=== PATIENT | male | born 1985 | race African-American/Black ===

== ENCOUNTER 2017-08-15 23:11 | Emergency (ER) | payer MEDICAID ==
[~2017-08-15] VITALS: Ht 165.1 cm; Wt 149.7 kg
[~2017-08-15 23:11] MED LIST: ALLEGRA30 MG PO; ALLEGRA60 MG PO; BACTRIM DS 8001 TA1 PO; CEPHALEXIN500 MG PO; CIPRO 500MG TA500 MG PO; CLARITIN 10MG T10 MG PO; DELTASONE5 MG PO; EC NAPROSYN500 MG PO; FLEXERIL10 MG PO; IMITREX100 MG PO; KEFLEX 500MG.500 MG PO; KEPPRA 500 MG500 MG PO; LORATADINE 10MG10 M1 PO; LORTAB 5/500 501 TAB PO; NOMEDS *; PAXIL20 MG PO; QVAR0.08 MG/AC IH; SEPTRA DS 800 M1 TAB PO; STERAPRED DS10 MG PO; TESSALON PERLE100 M1 PO; VENTOLIN H0.09 MG/AC IH; VICODIN 5/500 T1 TAB PO; VOLTAREN75 MG PO
[2017-08-15] MEDS ORDERED: MINOCYCLINE 10100 MG PO (23:33)
--- NOTE | 2017-08-15 23:34 | Emergency Room Report ---
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 N Clinical Suspician of Infection? N Mental Status: 1 - Regular (Normal Baseline) Sepsis Risk:Low Sepsis Risk Have you (or family members/close friends) recently traveled outside the [place]? N If Yes, where/when: Have you had exposure to infectious disease within the past month? N TB? Other? Specify: Source patient, RN notes reviewed, family, old records Exam Limitations no limitations Comment has ongoing scalp lesions with over the last few days which cause parra - no fever or neuro sx Cardiac Chest Pain Chest pain indicative of cardiac No Timing/Duration this evening Severity moderate ALLERGIES Coded Allergies: MDX - Ibuprofen (IBUPROFEN) (Intermediate, SWELLS THROAT 04/28/15) MDX - Tramadol (From ULTRAM) (Intermediate, SEIZURES 04/28/15) MDX - Hydrochlorothiazide (From HCTZ-METOPROLOL) (11/13/13) MDX - Metoprolol (From HCTZ-METOPROLOL) (11/13/13) MDX - PCN (penicillin) (PCN (PENICILLIN)) (C-[id number]-GJUG/THROAT 10/18/12) Home Medications Reported Medications Levetiracetam (Keppra 500 Mg Tablet) 500 MG PO BID Loratadine (Loratadine 10MG Tablet) 10 MG PO DAILY PAROXETINE (Paroxetine HCl) 20 MG PO DAILY Sumatriptan Succinate (Imitrex) 100 MG PO PRN PRN MIGRAINES ALBUTEROL (Ventolin Hfa) 1 PUFF IH PRN PRN SOA Beclomethasone Dipropionate (Qvar 80MCG Inhaler) 1 PUFF IH DAILY History Medical History General CAD? No Angina: No [place]: No Hypertension? Yes Hyperlipidemia? No CHF? No DVT? No PE? No COPD? No Asthma? Yes Anemia? No GERD? No Gastric ulcers? No GI Bleed? No Hernia? No Thyroid Problems? No Hypothyroidism? No CVA? No Seizures? Yes Diabetes? No Renal Insuffiency? No End Stage Renal Disease? No UTI? No Stones? No BPH? No GB Disease: No Nephritic Syndrome? No Asplenia? No Hepatitis? No Sickle Cell Disease? No Arthritis? No Migraines? No Cataracts? No Glaucoma? No MRSA? No HIV? No TB? No Anxiety? No Depression? No Cancer? No More? No Immunization Hx DT/Tetanus 02/26/12 Surgical Hx Previous Surgery?Y GANGLION CYST REMOVAL CARPAL TUNNEL BOTH WRIST Social History Smoking Hx Smoker: Current Every Day Smoker Tobacco: Yes Type Cigarettes Packs/day < 1 Pack Alcohol Alcohol: No Drugs none Review of Systems All Other Systems Reviewed and Negative Constitutional denies fever Eyes denies drainage ENT denies: ear pain, epistaxis, throat pain. Respiratory denies cough, denies shortness of breath, denies wheezing Cardiovascular denies chest pain, denies syncope Gastrointestinal denies abdominal pain, denies diarrhea, denies vomiting Genitourinary denies: dysuria, frequency, hesitancy, hematuria. Musculoskeletal denies back pain, denies joint pain, denies joint swelling, denies neck pain Skin see HPI, other Psychiatric/Neurological see HPI, headache, denies seizure Physical Exam Vital Signs Vital Signs Date Time Temp Pulse Resp B/P Pulse O2 O2 Flow FiO2 Ox Delivery Rate 08/15 2317 98.4 79 18 147/92 95 - WBC >12,000 or <4,000 or 10% bands? 2 or more SIRS Criteria Met? B/P:147/92 MAP:110 Creatinine >2.0? UA output<0.5ml/kg/hr for 2 hrs? Platelet count >100,000? Lactate >2.0mmol/1? INR >1.2 or PTT > than 60 sec? Evidence of Organ Dysfunction? Provider documented clinical suspician of infection? N Sepsis Criteria Count: 0 Sepsis Risk: Low Sepsis Risk General Appearance no apparent distress Eye Exam - bilateral eye PERRL, bilateral eye EOMI Ear, Nose, Throat normal ENT inspection Neck supple Respiratory Status No: respiratory distress. 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 No Departure Departure Time of Disposition 2324 Disposition DC Home or Self Care(routine) Clinical Impression Primary Impression: Cellulitis of scalp Condition STABLE Patient Instructions DI for Cellulitis -- Adult Additional Instructions ues meds and see pcp this week for follow up Discharge Counseling Counseled pt/family regarding diagnosis, medications/RX, follow up needs Prescriptions Current Visit Scripts Minocycline Hcl (Minocycline 100MG. Capsule) 100 MG PO BID #20 CAP ED Critical Care Critical Care No at 2336
--- NOTE | 2017-08-15 23:34 | Emergency Room Report ---
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 N Clinical Suspician of Infection? N Mental Status: 1 - Regular (Normal Baseline) Sepsis Risk:Low Sepsis Risk Have you (or family members/close friends) recently traveled outside the [place]? N If Yes, where/when: Have you had exposure to infectious disease within the past month? N TB? Other? Specify: Source patient, RN notes reviewed, family, old records Exam Limitations no limitations Comment has ongoing scalp lesions with over the last few days which cause parra - no fever or neuro sx Cardiac Chest Pain Chest pain indicative of cardiac No Timing/Duration this evening Severity moderate ALLERGIES Coded Allergies: MDX - Ibuprofen (IBUPROFEN) (Intermediate, SWELLS THROAT 04/28/15) MDX - Tramadol (From ULTRAM) (Intermediate, SEIZURES 04/28/15) MDX - Hydrochlorothiazide (From HCTZ-METOPROLOL) (11/13/13) MDX - Metoprolol (From HCTZ-METOPROLOL) (11/13/13) MDX - PCN (penicillin) (PCN (PENICILLIN)) (Q-[id number]/THROAT 10/18/12) Home Medications Reported Medications Levetiracetam (Keppra 500 Mg Tablet) 500 MG PO BID Loratadine (Loratadine 10MG Tablet) 10 MG PO DAILY PAROXETINE (Paroxetine HCl) 20 MG PO DAILY Sumatriptan Succinate (Imitrex) 100 MG PO PRN PRN MIGRAINES ALBUTEROL (Ventolin Hfa) 1 PUFF IH PRN PRN SOA Beclomethasone Dipropionate (Qvar 80MCG Inhaler) 1 PUFF IH DAILY History Medical History General CAD? No Angina: No [place]: No Hypertension? Yes Hyperlipidemia? No CHF? No DVT? No PE? No COPD? No Asthma? Yes Anemia? No GERD? No Gastric ulcers? No GI Bleed? No Hernia? No Thyroid Problems? No Hypothyroidism? No CVA? No Seizures? Yes Diabetes? No Renal Insuffiency? No End Stage Renal Disease? No UTI? No Stones? No BPH? No GB Disease: No Nephritic Syndrome? No Asplenia? No Hepatitis? No Sickle Cell Disease? No Arthritis? No Migraines? No Cataracts? No Glaucoma? No MRSA? No HIV? No TB? No Anxiety? No Depression? No Cancer? No More? No Immunization Hx DT/Tetanus 02/26/12 Surgical Hx Previous Surgery?Y GANGLION CYST REMOVAL CARPAL TUNNEL BOTH WRIST Social History Smoking Hx Smoker: Current Every Day Smoker Tobacco: Yes Type Cigarettes Packs/day < 1 Pack Alcohol Alcohol: No Drugs none Review of Systems All Other Systems Reviewed and Negative Constitutional denies fever Eyes denies drainage ENT denies: ear pain, epistaxis, throat pain. Respiratory denies cough, denies shortness of breath, denies wheezing Cardiovascular denies chest pain, denies syncope Gastrointestinal denies abdominal pain, denies diarrhea, denies vomiting Genitourinary denies: dysuria, frequency, hesitancy, hematuria. Musculoskeletal denies back pain, denies joint pain, denies joint swelling, denies neck pain Skin see HPI, other Psychiatric/Neurological see HPI, headache, denies seizure Physical Exam Vital Signs Vital Signs Date Time Temp Pulse Resp B/P Pulse O2 O2 Flow FiO2 Ox Delivery Rate 08/15 2317 98.4 79 18 147/92 95 - WBC >12,000 or <4,000 or 10% bands? 2 or more SIRS Criteria Met? B/P:147/92 MAP:110 Creatinine >2.0? UA output<0.5ml/kg/hr for 2 hrs? Platelet count >100,000? Lactate >2.0mmol/1? INR >1.2 or PTT > than 60 sec? Evidence of Organ Dysfunction? Provider documented clinical suspician of infection? N Sepsis Criteria Count: 0 Sepsis Risk: Low Sepsis Risk General Appearance no apparent distress Eye Exam - bilateral eye PERRL, bilateral eye EOMI Ear, Nose, Throat normal ENT inspection Neck supple Respiratory Status No: respiratory distress. 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 No Departure Departure Time of Disposition 2324 Disposition DC Home or Self Care(routine) Clinical Impression Primary Impression: Cellulitis of scalp Condition STABLE Patient Instructions DI for Cellulitis -- Adult Additional Instructions ues meds and see pcp this week for follow up Discharge Counseling Counseled pt/family regarding diagnosis, medications/RX, follow up needs Prescriptions Current Visit Scripts Minocycline Hcl (Minocycline 100MG. Capsule) 100 MG PO BID #20 CAP ED Critical Care Critical Care No at 2334
--- OUTSIDE RECORDS SUMMARY | 2017-08-15 23:42 | External Medical Summary Rpt | CCD ---
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 [place] [address] NJX IV BLAISE BLAISE PUSH SINGLE/1S T SBST/DRUG INJECTION J1100 [address] DEXAMETHO BLAISE BLAISE SONE SODIUM PHOSPHATE 1 MG THER 76781 [facility]. PROPH/DX [address] [place] [address] NJX EA BLAISE BLAISE SEQL IV PUSH SBST/DRUG FAC INJECTION J2405 [address] ONDANSETR BLAISE BLAISE ON HCL PER 1 MG COLLECTIO [address] [facility] [address] N VENOUS 7 [facility] BLOOD B[place] [address] [facility] STREPTOCO 7 [facility] CCUS BLAISE BLAISE GROUP A RADEX 44340 [facility] CELLAROSI SPINE 1 7 [facility] VIEW EMERGENCY SPECIFY PHYS LEVEL RADEX 80009 [facility] [place] NARANJO SPINE 7 RADIOLOGY LUMBOSACR AL 2/3 VIEWS CHIROPRAC 88295 RAYLAKE SADAF TIC 7 N FAMILY MANIPULAT CHIROPRAC SRAVAN TX T SPINAL 1-2 REGIONS APPL 73260 RAYLAKE SADAF MODALITY 7 N FAMILY 1/> AREAS CHIROPRAC T ULTRASOUN D EA 15 MIN RADIOLOGI 01354 [facility]KOGE[facility]oi THAI C EXAM 7 ORTHOPEDI KNEE C COMPLETE ASSOCIAT 4/MORE VIEWS NEUROPLAS 60047 [facility]PE TY 7 ORTHOPEDI &/TRANSPO C S MEDIAN ASSOCIAT NRV CARPAL TUNNE INJECTION J2704 [facility] PROPOFOL 7 N N 10 MG COMMUNTIY COMMUNTIY HOSPITA HOSPITA INJECTION J3010 [facility] FENTANYL 7 N N CITRATE COMMUNTIY COMMUNTIY 0.1 MG HOSPITA HOSPITA RINGERS J7120 [facility] LACTATE 7 N N INFUSION COMMUNTIY COMMUNTIY UP TO HOSPITA HOSPITA 1000 CC ANES 40914 [place] NERVE 7 ANESTHESI MUSCLE A GROUP TDN PS FASCIA&BU RSA FOREARM WRIST ECG 60026 [facility] ROUTINE 7 N N ECG COMMUNTIY COMMUNTIY W/LEAST HOSPITA HOSPITA 12 LDS TRCG ONLY W/O I&R COLLECTIO 60931 [facility] N VENOUS 7 N N BLOOD COMMUNTIY COMMUNTIY VENIPUNCT HOSPITA HOSPITA URE RADIOLOGI 46952 [facility] C EXAM 7 N N CHEST 2 COMMUNTIY COMMUNTIY VIEWS HOSPITA HOSPITA FRONTAL&L ATERAL COMPREHEN 25425 [facility] SIVE 7 N N METABOLIC COMMUNTIY COMMUNTIY PANEL HOSPITA HOSPITA BLOOD 93396 [facility] COUNT 7 N N COMPLETE COMMUNTIY COMMUNTIY AUTOMATED HOSPITA HOSPITA RADIOLOGI 52794 [facility] DULAI C 7 N EXAMINATI RADIOLOGY ON KNEE 3 GROUP P VIEWS PROMETHAZ Q0169 [facility] HCL 7 REGIONAL REGIONAL 12.5 MG MEDICAL MEDICAL ORAL NOT>48 HR DOSE NONINVASI 10198 GAGE GRAYSON VE 6 MEDICAL, EAR/PULSE LLC OXIMETRY SINGLE DETER IAADIADOO 45057 GAGE GRAYSON 6 MEDICAL, STREPT[facility]O LLC CCUS GROUP A GLOBAL S9083 GAGE GRAYSON FEE 6 MEDICAL, URGENT LLC CARE CENTERS NEEDLE 89680 [facility] CLE[facility] TRA EMG EA 6 [place] EXTREMTY ORTHOPAED W/PARASPI IC NL AREA COMPLETE NERVE 28036 [facility] TRA CONDUCTIO 6 [place] N STUDIES ORTHOPAED 5-6 IC STUDIES RADEX 39920 [facility] HAND 6 [place] MINIMUM 3 ORTHOPAED VIEWS IC RADEX 22871 [facility]OUNDAT[facility] DULAI MANDY FOOT 6 N COMPLETE RADIOLOGY MINIMUM 3 GROUP P VIEWS SERVICES 19927 F[facility]AT[facility] DULAI MANDY PROVIDED 6 N BTW 10 RADIOLOGY PM&8 AM GROUP P AT 24-HR FACI DUP-SCAN 88647 FOUNDATIO DULAI MANDY XTR VEINS 6 N RADIOLOGY UNILATERA GROUP P L/LIMITED STUDY SERVICES 70981 CHELITA REMY PROVIDED 6 MEDICAL BTW 10 SERVICES, PM&8 AM PSC AT 24-HR FACI SERVICES 85575 KRISTEN PEREZ PROVIDED 6 CIRO GREGORIO BTW 10 PM&8 AM EMERGENCY AT 24-HR FACI INCISION 20613 KRISTEN ROD & 6 CIRO GREGORIO KATARZYNA DRAINAGE ABSCESS EMERGENCY SIMPLE/SI NGLE SERVICES 69099 KRISTEN ROD PROVIDED 5 CIRO COLÓN BTW 10 PM&8 AM EMERGENCY AT 24-HR FACI SERVICES 50378 KRISTEN SALDAÑA PROVIDED 5 JR QUIRINO HARTLEY BTW 10 PM&8 AM EMERGENCY AT 24-HR FACI RADEX 95527 [facility] WRIST 5 N N COMPLETE COMMUNTIY COMMUNTIY MINIMUM 3 HOSPITA HOSPITA VIEWS INCISION 43571 MARYSOL DELATORRE SCO & 5 AGUSTIN DRAINAGE EMERGENCY ABSCESS SERV SIMPLE/SI NGLE ADMN SET A7005 J & L J & L W/SM VOL 5 HOME HOME NONFILTR MEDICAL MEDICAL NEBULIZR EQUIPMENT EQUIPMENT NON-DISPB L RADEX 99640 MARIBETH STAHL FINGR 5 MEM HOSP MEM HOSP MINIMUM 2 INC INC VIEWS INCISION 50110 [facility] LOPEZ & 5 AGUSTIN VINNY DRAINAGE EMERGENCY ABSCESS PHYS COMPLICAT ED/MULTIP LE RADEX 91192 [facility] [place] SAKINA RIBS UNI 5 RADIOLOGY RHO W/POSTERO ANT CH MINIMUM 3 VIEWS CHIROPRAC 36219 RAJESH TALAVERA TIC 5 N FAMILY INEZ MANIPULAT CHIROPRAC SRAAVN TX T SPINAL 3-4 REGIONS THERAPEUT 52710 MARELYW SADAF IC PX 1/> 5 N FAMILY INEZ AREAS CHIROPRAC EACH 15 T MIN EXERCISES APPL 65622 MARELYW SADAF MODALITY 5 N FAMILY INEZ 1/> AREAS CHIROPRAC TRACTION T MECHANICA L APPL 84436 GEORGEVIKASW SADAF MODALITY 5 N FAMILY INEZ 1/> AREAS CHIROPRAC ELEC T STIMJ UNATTENDE D INCISION 73075 [facility] PUND CHR & 5 AGUSTIN DRAINAGE EMERGENCY ABSCESS PHYS COMPLICAT ED/MULTIP LE NEBULIZER E0570 J & L J & L WITH 5 HOME HOME COMPRESSO MEDICAL MEDICAL R EQUIPMENT EQUIPMENT ADMN SET A7005 J & L J & L W/SM VOL 5 HOME HOME NONFILTR MEDICAL MEDICAL NEBULIZR EQUIPMENT EQUIPMENT NON-DISPB L FILTER A7014 J & L J & L NON-DISPB 5 HOME HOME L USED MEDICAL MEDICAL W/AROSL EQUIPMENT EQUIPMENT COMPRS/US GEN THERAPEUT 60932 RAYRADHA SADAF IC PX 1/> 4 N FAMILY INEZ AREAS CHIROPRAC EACH 15 T MIN EXERCISES APPL 63904 GEORGETOW SADAF MODALITY 4 N FAMILY INEZ 1/> AREAS CHIROPRAC ELEC T STIMJ UNATTENDE D APPL 86906 GEORGETOW SADAF MODALITY 4 N FAMILY INEZ 1/> AREAS CHIROPRAC TRACTION T MECHANICA L CHIROPRAC 23344 GEORGEVIKASW SADAF TIC 4 N FAMILY INEZ MANIPULAT CHIROPRAC SRAVAN TX T SPINAL 3-4 REGIONS CHIROPRAC 80423 RAJESH TALAVERA TIC 4 N FAMILY INEZ MANIPULAT CHIROPRAC SRAVAN TX T SPINAL 3-4 REGIONS THERAPEUT 69177 RAJESH TALAVERA IC PX 1/> 4 N FAMILY INEZ AREAS CHIROPRAC EACH 15 T MIN EXERCISES THERAPEUT 11085 RAJESH TALAVERA IC PX 1/> 4 N FAMILY INEZ AREAS CHIROPRAC EACH 15 T MIN EXERCISES CHIROPRAC 43401 RAJESH TALAVERA TIC 4 N FAMILY INEZ MANIPULAT CHIROPRAC SRAVAN TX T SPINAL 3-4 REGIONS CHIROPRAC 46555 RAJESH TALAVERA TIC 4 N FAMILY INEZ MANIPULAT CHIROPRAC SRAVAN TX T SPINAL 3-4 REGIONS THERAPEUT 00063 RAJESH TALAVERA IC PX 1/> 4 N FAMILY INEZ AREAS CHIROPRAC EACH 15 T MIN EXERCISES APPL 38108 RAJESH TALAVERA MODALITY 4 N FAMILY INEZ 1/> AREAS CHIROPRAC ELEC T STIMJ EA 15 MIN APPL 23096 RAJESH TALAVERA MODALITY 4 N FAMILY INEZ 1/> AREAS CHIROPRAC TRACTION T MECHANICA L APPL 18083 RAJESH TALAVERA MODALITY 4 N FAMILY INEZ 1/> AREAS CHIROPRAC ELEC T STIMJ UNATTENDE D APPL 53425 RAJESH TALAVERA MODALITY 4 N FAMILY INEZ 1/> AREAS CHIROPRAC ELEC T STIMJ UNATTENDE D APPL 19027 RAJESH TALAVERA MODALITY 4 N FAMILY INEZ 1/> AREAS CHIROPRAC TRACTION T MECHANICA L THERAPEUT 61167 RAJESH TALAVERA IC PX 1/> 4 N FAMILY INEZ AREAS CHIROPRAC EACH 15 T MIN EXERCISES CHIROPRAC 51324 RAJESH TALAVERA TIC 4 N FAMILY INEZ MANIPULAT CHIROPRAC SRAVAN TX T SPINAL 3-4 REGIONS MANUAL 48653 RAYChloe BELLVIKASChloe THERAPY 4 N N TQS 1/> COMMUNTIY COMMUNTIY REGIONS HOSPITA HOSPITA EACH 15 MINUTES THERAPEUT 69057 [facility] RAYVIKASChloe IC PX 1/> 4 N N AREAS COMMUNTIY COMMUNTIY EACH 15 HOSPITA HOSPITA MIN EXERCISES OCCUPATIO 42374 RAYChloe MENA NAL 4 N N THERAPY COMMUNTIY COMMUNTIY EVALUATIO HOSPITA HOSPITA N APPL 34998 RAJESH SADAF MODALITY 4 N FAMILY INEZ 1/> AREAS CHIROPRAC TRACTION T MECHANICA L APPL 50002 RAJESH SADAF MODALITY 4 N FAMILY INEZ 1/> AREAS CHIROPRAC ELEC T STIMJ UNATTENDE D CHIROPRAC 26466 RAJESH SADAF TIC 4 N FAMILY INEZ MANIPULAT CHIROPRAC SRAVAN TX T SPINAL 3-4 REGIONS CHIROPRAC 14588 RAJESH SADAF TIC 4 N FAMILY INEZ MANIPULAT CHIROPRAC SRAVAN TX T SPINAL 3-4 REGIONS APPL 15849 RAJESH SADAF MODALITY 4 N FAMILY INEZ 1/> AREAS CHIROPRAC TRACTION T MECHANICA L APPL 66557 RAJESH SADAF MODALITY 4 N FAMILY INEZ 1/> AREAS CHIROPRAC ELEC T STIMJ UNATTENDE D THERAPEUT 70205 RAJESH TALAVERA IC PX 1/> 4 N FAMILY INEZ AREAS CHIROPRAC EACH 15 T MIN EXERCISES THERAPEUT 63666 RAJESH TALAVERA IC PX 1/> 4 N FAMILY INEZ AREAS CHIROPRAC EACH 15 T MIN EXERCISES APPL 03140 RAJESH SADAF MODALITY 4 N FAMILY INEZ 1/> AREAS CHIROPRAC TRACTION T MECHANICA L APPL 55178 RAJESH SADAF MODALITY 4 N FAMILY INEZ 1/> AREAS CHIROPRAC ELEC T STIMJ UNATTENDE D CHIROPRAC 58047 RAJESH SADAF TIC 4 N FAMILY INEZ MANIPULAT CHIROPRAC SRAVAN TX T SPINAL 3-4 REGIONS CHIROPRAC 72740 RAJESH SADAF TIC 4 N FAMILY INEZ MANIPULAT CHIROPRAC SRAVAN TX T SPINAL 3-4 REGIONS APPL 83143 RAJESH SADAF MODALITY 4 N FAMILY INEZ 1/> AREAS CHIROPRAC ELEC T STIMJ UNATTENDE D APPL 67797 RAJESH SADAF MODALITY 4 N FAMILY INEZ 1/> AREAS CHIROPRAC TRACTION T MECHANICA L THERAPEUT 96853 RAJESH TALAVERA IC PX 1/> 4 N FAMILY INEZ AREAS CHIROPRAC EACH 15 T MIN EXERCISES THERAPEUT 71648 RAJESH TALAVERA IC PX 1/> 4 N FAMILY INEZ AREAS CHIROPRAC EACH 15 T MIN EXERCISES APPL 05714 RAJESH TALAVERA MODALITY 4 N FAMILY INEZ 1/> AREAS CHIROPRAC TRACTION T MECHANICA L APPL 38126 RAJESH TALAVERA MODALITY 4 N FAMILY INEZ 1/> AREAS CHIROPRAC ELEC T STIMJ UNATTENDE D CHIROPRAC 63592 RAJESH TALAVERA TIC 4 N FAMILY INEZ MANIPULAT CHIROPRAC SRAVAN TX T SPINAL 3-4 REGIONS CHIROPRAC 00018 RAJESH TALAVERA TIC 4 N FAMILY INEZ MANIPULAT CHIROPRAC SRAVAN TX T SPINAL 3-4 REGIONS APPL 48998 RAJESH TALAVERA MODALITY 4 N FAMILY INEZ 1/> AREAS CHIROPRAC ELEC T STIMJ UNATTENDE D THERAPEUT 54467 RAJESH TALAVERA IC PX 1/> 4 N FAMILY INEZ AREAS CHIROPRAC EACH 15 T MIN EXERCISES THERAPEUT 02728 RAJESH TALAVERA IC PX 1/> 4 N FAMILY INEZ AREAS CHIROPRAC EACH 15 T MIN EXERCISES APPL 76300 RAJESH TALAVERA MODALITY 4 N FAMILY INEZ 1/> AREAS CHIROPRAC ELEC T STIMJ UNATTENDE D APPL 18181 RAJESH TALAVERA MODALITY 4 N FAMILY INEZ 1/> AREAS CHIROPRAC TRACTION T MECHANICA L CHIROPRAC 73070 RAJESH TALAVERA TIC 4 N FAMILY INEZ MANIPULAT CHIROPRAC SRAVAN TX T SPINAL 3-4 REGIONS CHIROPRAC 70230 RAJESH TALAVERA TIC 4 N FAMILY INEZ MANIPULAT CHIROPRAC SRAVAN TX T SPINAL 3-4 REGIONS APPL 88911 RAJESH SADAF MODALITY 4 N FAMILY INEZ 1/> AREAS CHIROPRAC TRACTION T MECHANICA L APPL 91969 RAJESH TALAVERA MODALITY 4 N FAMILY INEZ 1/> AREAS CHIROPRAC ELEC T STIMJ UNATTENDE D THERAPEUT 69874 RAJESH TALAVERA IC PX 1/> 4 N FAMILY INEZ AREAS CHIROPRAC EACH 15 T MIN EXERCISES THERAPEUT 63195 RAJESH TALAVERA IC PX 1/> 4 N FAMILY INEZ AREAS CHIROPRAC EACH 15 T MIN EXERCISES CHIROPRAC 00861 RAJESH TALAVERA TIC 4 N FAMILY INEZ MANIPULAT CHIROPRAC SRAVAN TX T SPINAL 3-4 REGIONS AMB A0427 [facility] SERVICE 4 N SCOT T N SCOT T ALS CO EMS CO EMS EMERGENCY TRANSPORT LEVEL 1 GROUND A0425 [facility] MILEAGE 4 N SCOT T N SCOT T PER CO EMS CO EMS STATUTE MILE RADEX 16432 [facility] TALAVERA SPINE 4 N FAMILY INEZ LUMBOSACR CHIROPRAC AL 2/3 T VIEWS RADEX 00363 [facility] SADAF SPINE 4 N FAMILY INEZ CERVICAL CHIROPRAC 2 OR 3 T VIEWS WRIST L3908 [facility] HAND 4 TECHNOLOG TECHNOLOG ORTHOSIS IES INC IES INC EXT CONTROL COCK-UP PREFAB SHOULDER L3670 J & L J & L ORTHOSIS 4 HOME HOME ACROMIO/C MEDICAL MEDICAL LAVICULAR EQUIPMENT EQUIPMENT PREFAB THERAPEUT 58579 [facility] IC [address] [facility] TIC/DX HOSPITA HOSPITA INJECTION SUBQ/IM INJECTION J2270 [facility] MORPHINE [address] [facility] UP TO 10 HOSPITA HOSPITA MG NEUROPLAS 21053 [facility] TY [address] [place] [address] &/TRANSPO HOSPITAL HOSPITAL S MEDIAN NRV CARPAL TUNNE INJECTION J2[address] [facility] HCL PER 1 MG INJECTION J[address] [facility] SONE SODIUM PHOSPHATE 1 MG ANES 24061 ANA [facility] ANT NERVE 4 ANESTHESI MUSCLE A GROUP TDN PS FASCIA&BU RSA FOREARM WRIST INJECTION J[address] ON HCL PER 1 MG INJECTION J3010 [facility] FENTANYL [address] [place] [address] 0.1 MG LEVEL III 69790 [facility] PATHOLOGY GROSS&WESLEY ROSCOPIC EXAM EXCISION 16272 BOCARLOON BOCARLOON GANGLION 4 [facility] DORSAL/VO LAR PRIMARY GROUND A0425 [facility] MILEAGE 4 N SCOT T N SCOT T PER CO EMS CO EMS STATUTE MILE AMBULANCE A0429 [facility] SERVICE 4 N SCOT T N SCOT T BLS CO EMS CO EMS EMERGENCY TRANSPORT WRIST L3908 J & L J & L HAND 4 HOME HOME ORTHOSIS MEDICAL MEDICAL EXT EQUIPMENT EQUIPMENT CONTROL COCK-UP PREFAB LEVEL III 02055 [facility] PATHOLOGY GROSS&WESLEY ROSCOPIC EXAM COLLECTIO 90789 ORTIZ DAMON N VENOUS 4 PADMINI BLOOD PEDIATRIC VENIPUNCT S & INTER URE BLOOD 70711 LAB MELVI LAB MELVI COUNT 4 ANDREY ANDREY COMPLETE [employer] AUTOMATED RADEX 53436 [facility] [place] SAKINA WRIST 4 RADIOLOGY RHO COMPLETE MINIM[address] [place] [address] [facility] [place] DODGE HEAD/BRAI 4 RADIOLOGY RAY N W/O CONTRAST MATERIAL INCISION 10829 [facility] CELLAROSI & 4 AGUSTIN - YORBA DRAINAGE EMERGENCY PAT ABSCESS PHYS SIMPLE/SI NGLE INCISION 70233 [facility] LOPEZ & 4 AGUSTIN VINNY DRAINAGE EMERGENCY ABSCESS PHYS SIMPLE/SI NGLE RADEX 97703 [facility] [place] CYNTHIA MAT SPINE 4 RADIOLOGY LUMBOSACR AL 2/3 VIEWS Encounters Encounter Start End Date Code Location Performer Type Date EMERGENCY [address] ST. 7 7 [facility] BLAISE T VISIT MODERATE SEVERITY EMERGENCY 43283 [facility] DEPT 7 7 EMERGENCY VISIT HIGH PHYSICIAN SEVERITY& S THREAT FUNJ CRITICAL ST. ACCESS 7 7 [facility] BLAISE EMERGENCY 18691 [facility] CELLAROSI 7 7 [facility] - [facility] T VISIT PHYS HIGH/URGE NT SEVERITY OFFICE 50275 [facility] OUTPATIEN 7 7 N FAMILY T VISIT CHIROPRAC 10 T MINUTES EMERGENCY 56150 [facility] 7 [facility] VISIT MODERATE SEVERITY [facility]OSPITAL PONCE - 7 7 REGIONAL OUTPATIEN MEDICAL T OFFICE 81488 ANA ANDRE OUTPATIEN 7 7 ORTHOPEDI T VISIT C 15 ASSOCIAT MINUTES EMERGENCY 68293 JUNIPER STIC 7 7 [facility] T VISIT EMERGENCY MODERATE SEVERITY [facility]OSPITAL PON[facility] - 7 7 REGIONAL OUTPATI MEDICAL T EMERGENCY 30052 PONCE 7 7 [facility] MEDICAL T VISIT LIMITED/M INOR PROB [facility] 7 7 N OUTPATIEN COMMUNTIY T HOSPITA EMERGENCY 79367 [facility] 7 7 [facility] T VISIT EMERGENCY HIGH/URGE NT SEVERITY [facility] [place] [address] 7 N OUTPATIEN COMMUNTIY T HOSPITA EMERGENCY 75700 JOSEFINA-Ulysses ARGUELLO 7 7 MEDICAL DEPARTMEN SERVCIES, T VISIT PSC MODERATE SEVERITY OFFICE 15029 [place] N[place]GE OUTPATIEN 7 7 ORTHOPEDI T NEW 45 C MINUTES ASSOCIAT EMERGENCY 49090 JUNIPER STIC 7 7 [facility] T VISIT EMERGENCY MODERATE SEVERITY HOSPITAL PONCE - 7 7 REGIONAL OUTPATIEN MEDICAL T OFFICE 25567 [facility] TRA OUTPATIEN 6 6 [place] T VISIT ORTHOPAED 10 IC MINUTES OFFICE 02480 [facility] OUTPATIEN 6 6 [place] T NEW 30 ORTHOPAED MINUTES IC EMERGENCY 45530 [place] BILLY REMY DEPT 6 6 MEDICAL VISIT SERVICES, HIGH PSC SEVERITY& THREAT FUNCJ EMERGENCY 82797 KRISTEN CORLEY MAR 6 6 [facility] DEPARTMEN T VISIT EMERGENCY MODERATE SEVERITY [facility]OSP[facility] [place] - 6 6 [facility] OUTPATIEN MEDICAL T EMERGENCY 68271 [facility] 6 6 [facility] DEPARTMEN MEDICAL T VISIT LOW/MODER SEVERITY EMERGENCY 89505 KRISTEN ROD 6 6 [facility] KATARZYNA DEPARTMEN T VISIT EMERGENCY MODERATE SEVERITY EMERGENCY 51121 KRISTEN ROD 5 5 [facility] KATARZYNA DEPARTMEN T VISIT EMERGENCY MODERATE SEVERITY EMERGENCY 23044 KRISTEN PIPER 5 5 CIRO JG , JR WIN DEPARTMEN T VISIT EMERGENCY MODERATE SEVERITY [facility] 5 N OUTPATI COMMUNTIY T HOSPITA EMERGENCY 02233 [facility]OPE[facility] 5 5 [facility] VINNY DEPARTMEN EMERGENCY T VISIT PHYS MODERATE SEVERITY OFFICE 02636 [facility] 5 5 PADMINI T VISIT PEDIATRIC 15 S & INTER MINUTES EMERGENCY 99156 [facility] NANDINI REDDYO 5 5 [facility]UST[facility] DEPARTMEN EMERGENCY T VISIT SERV HIGH/URGE NT SEVERITY EMERGENCY 17416 [facility] DELANEY JR 5 5 [facility] DEPARTMEN EMERGENCY T VISIT PHYS MODERATE SEVERITY EMERGENCY 68958 [facility] ELAINA URENA 5 5 [facility] DEPARTMEN EMERGENCY T VISIT PHYS MODERATE SEVERITY HOSPITAL [facility] - 5 5 [facility] OUTPATIEN INC T EMERGENCY 11459 [facility]IB[facility] 5 5 [facility] DEPARTMEN INC T VISIT LIMITED/M INOR PROB EMERGENCY 11684 [facility] JESSICA 5 5 AGUSTIN VINNY DEPARTMEN EMERGENCY T VISIT PHYS MODERATE SEVERITY EMERGENCY 40904 [facility] MOOSE 5 5 [facility] - YORBA DEPARTMEN EMERGENCY PAT T VISIT PHYS MODERATE SEVERITY EMERGENCY 92343 [facility] ELAINA URENA 5 5 [facility]UST[facility] AMOR DEPARTMEN EMERGENCY T VISIT PHYS MODERATE SEVERITY EMERGENCY 84961 [facility] LOPEZ 5 5 AGUSTIN VINNY DEPARTMEN EMERGENCY T VISIT PHYS HIGH/URGE NT SEVERITY EMERGENCY 93764 [facility] ELAINA JR 5 5 AGUSTIN AMOR DEPARTMEN EMERGENCY T VISIT PHYS HIGH/URGE NT SEVERITY EMERGENCY 26625 [facility] MICHAEL YAJAIRA 5 5 [place] DEPARTMEN EMERGENCY T VISIT PHYS MODERATE SEVERITY EMERGENCY 85412 [facility] LOPEZ 5 5 [facility] VINNY DEPARTMEN EMERGENCY T VISIT PHYS MODERATE SEVERITY OFFICE 86596 ORTIZ DAMON OUTPATIEN 5 5 PADMINI T VISIT 5 PEDIATRIC MINUTES S & INTER EMERGENCY 41412 [facility] PUNIman CHR 5 5 AGUSTIN DEPARTMEN EMERGENCY T VISIT PHYS MODERATE SEVERITY OFFICE 11138 ORTIZ DAMON OUTPATIEN 5 5 PADMINI T VISIT PEDIATRIC 15 S & INTER MINUTES EMERGENCY 13633 [facility] CELLAROSI 5 5 AGUSTIN - YORBA DEPARTMEN EMERGENCY PAT T VISIT PHYS MODERATE SEVERITY [facility]OSP[facility] - 4 4 N OUTPATIEN COMMUNTIY T HOSPITA EMERGENCY 41189 [facility] CELLAROSI 4 4 AGUSTIN - YORBA DEPARTMEN EMERGENCY PAT T VISIT PHYS MODERATE SEVERITY OFFICE 75016 RAJESH TALAVERA OUTPATIEN 4 4 N FAMILY INEZ T NEW 30 CHIROPRAC MINUTES T OFFICE 62691 ORTIZ DAMON OUTPATIEN 4 4 PADMINI T VISIT PEDIATRIC 15 S & INTER MINUTES EMERGENCY 86785 [facility] 4 4 N DEPARTMEN COMMUNITY T VISIT HOSPITA MODERATE SEVERITY EMERGENCY 24922 [facility] CELLAROSI 4 4 AGUSTIN - YORBA DEPARTMEN EMERGENCY PAT T VISIT PHYS HIGH/URGE NT SEVERITY HOSPITAL MARELYW - 4 4 N OUTPATIEN COMMUNITY T HOSPITA EMERGENCY 61200 [facility] LINDQUIST 4 4 AGUSTIN RYA DEPARTMEN EMERGENCY T VISIT PHYS LOW/MODER SEVERITY HOSPITAL RAJESH - 4 4 N OUTPATIEN COMMUNTIY T HOSPITA EMERGENCY 89715 [facility] 4 4 N DEPARTMEN COMMUNTIY T VISIT HOSPITA MODERATE SEVERITY OFFICE 67221 [facility]TI[facility] DAMON OUTPATIEN 4 4 PADMINI T VISIT 5 PEDIATRIC MINUTES S & INTER HOSPITAL RAJESH - 4 4 N OUTPATIEN COMMUNITY T HOSPITA EMERGENCY 24704 [facility] JESSICA 4 4 AGUSTIN VINNY DEPARTMEN EMERGENCY T VISIT PHYS HIGH/URGE NT SEVERITY OFFICE 31349 ORTIZ HYDE OUTPATIEN 4 4 AND T NEW 20 PEDIATRIC MINUTES S & INTER EMERGENCY 78808 [facility] MICHAEL GATES 4 4 AGUSTIN DEPARTMEN EMERGENCY T VISIT PHYSI MODERATE SEVERITY EMERGENCY 31287 [facility] MOOSE 4 4 AGUSTIN - YORBA DEPARTMEN EMERGENCY PAT T VISIT PHYS MODERATE SEVERITY EMERGENCY 24673 [facility] JESSICA 4 4 AGUSTIN VINNY DEPARTMEN EMERGENCY T VISIT PHYS MODERATE SEVERITY EMERGENCY 39370 [facility] MICHAEL 4 4 AGUSTIN DEPARTMEN EMERGENCY T VISIT PHYSI HIGH/URGE NT SEVERITY Emergency ROMINA Capps MD (ER) 4 22:59 4 01:09 [facility] Emergency ROMINA Ortiz (ER) 3 01:00 3 02:25 [facility]
--- OUTSIDE RECORDS SUMMARY | 2017-08-15 23:42 | External Medical Summary Rpt | CCD ---
Author Author , SALLIE RIZO Address Unknown Phone [email or web address] Team Providers Care Signal Processing Engineer Name Role Phone [employer] Unavailable Unavailable INC, [employer] Unavailable Unavailable INC, [employer] [facility], Unavailable Unavailable [facility] Unavailable Unavailable & INTER, [facility] Unavailable Unavailable [facility] THAI ANDRE Unavailable Unavailable [facility], [employer], Unavailable Unavailable [facility] [facility], [facility] CELLAROSI - YORBA, Unavailable Unavailable CELLAROSI - YORBA CELLAROSI - YORBA Unavailable Unavailable PAT, CELLAROSI - YORBA PAT [facility] Unavailable Unavailable ORTHOPAEDIC, [facility], Unavailable Unavailable [facility] SAUNDRA, SAUNDRA Unavailable Unavailable RENUKA GRAYSON Unavailable Unavailable DULAI, DULAI Unavailable Unavailable DULAI MANDY, DULAI MANDY Unavailable Unavailable JESSICA SPAIN Unavailable Unavailable [facility] Unavailable Unavailable GROUP P, [facility] Unavailable Unavailable MEDICAL, [facility] Unavailable Unavailable HOSPITA, [facility] Unavailable Unavailable HOSPITA, [facility] H[facility]ITA [facility] Unavailable Unavailable CHIROPRACT, [facility] Unavailable Unavailable EMS, [facility] SAKINA RHO, SAKINA Unavailable Unavailable RHO REGINE, REGINE Unavailable Unavailable NARANJO, NARANJO Unavailable Unavailable [facility] Unavailable Unavailable INC, [facility] JR QUIRINO SALDAÑA, Unavailable Unavailable JR QUIRINO SALDAÑA [facility] Unavailable Unavailable [facility] Unavailable Unavailable EQUIPMENT, [facility] Unavailable Unavailable [facility]QUIPMENT, [facility] Unavailable [facility]available [facility] NESLON PADMINI, NELSON Unavailable Unavailable PADMINI QUINN WESLEY, QUINN WESLEY Unavailable Unavailable [facility] Unavailable Unavailable EMERGENCY, [facility] Unavailable Unavailable ASSOCIAT, [facility] Unavailable Unavailable SERVCIES, [...] Unavailable Unavailable [facility] Un[facility] Un[facility], [facility] Unavailable Unavailable [facility]ENCY SERV, [facility] BLAISE, Unavailable Unavailable [facility] LINDQUIST RYA, LINDQUIST Unavailable Unavailable RYA DODGE [...] Diagnosis DOS Provider Status E860 DEHYDRATION 05-17-2017 [facility] BLAISE [id number] EPILEPSY 05-17-2017 [facility] INTRACT W/O BLAISE STATUS EPILEPTICUS Q76881 UNSPECIFIED 05-17-2017 [facility] ASTHMA KIEL WITH ACUTE BLAISE EXACERBATIO N K529 NONINFECTIV 05-17-2017 [facility] E KIEL GASTROENTER BLAISE ITIS & COLITIS UNS R0989 OTH SPEC SX 05-17-2017 ST[facility] & SIGNS KIEL INVLV THE BLAISE CIRC & RESP SYS R1110 VOMITING 05-17-2017 [facility] UNSPECIFIED [place] BLA[place] R51 HEADACHE 05-17-2017 [facility] [place] BLA[place] M545 LOW BACK 04-15-2017 [facility] [place] PAIN RADIOLOGY [id number] CONTUSION 04-15-2017 [facility] LOWER BACK N EMERGENCY & PELVIS PHYS INITIAL ENCOUNTER J97PVQU UNSPECIFIED 04-15-2017 [facility] FALL N EMERGENCY INITIAL PHYS ENCOUNTER M5386 OTHER 04-12-2017 [facility] SPECIFIED FAMILY DORSOPATHIE [facility] S LUMBAR REGION M9903 SEGMENTAL & 04-12-2017 [place] SOMATIC FAMILY DYSFUNCTION [facility] OF LUMBAR REGION M9905 SEGMENTAL & 04-12-2017 [place] SOMATIC FAMILY DYSFUNCTION [facility] OF PELVIC REGION M9985 OTHER 04-12-2017 [place] BIOMECHANIC FAMILY AL LESIONS [facility] OF PELVIC REGION L739 FOLLICULAR 04-07-2017 [facility] DISORDER MEDICAL UNSPECIFIED SERVICES B48697 PAIN IN 02-17-2017 [facility] LEFT KNEE ORTHOPEDIC ASSOCIAT M2392 UNSPECIFIED 12-20-2016 [facility] DERANGEMENT EMERGENCY OF LEFT KNEE Z5189 ENCOUNTER 12-01-2016 [facility] FOR OTHER REGIONAL SPECIFIED MEDICAL AFTERCARE G5602 CARPAL 11-30-2016 [place] [facility] SYNDROME ASSOCIAT LEFT UPPER LIMB J93783 UNSPECIFIED 11-30-2016 [facility] ASTHMA COMMUNTIY UNCOMPLICAT HOSPITA ED R300 DYSURIA 11-27-2016 [facility] EMERGENCY K86807 ENCOUNTER 11-18-2016 [facility] [place] FOR RADIOLOGY PREPROCEDUR AL RESPIRATORY EXAM Y20242 ENCOUNTER 11-18-2016 [place] FOR OTHER COMMUNTIY PREPROCEDUR HOSPITA AL EXAMINATION R030 ELEVATED 11-15-2016 [facility] BLOOD-PRESS MED[facility] URE READING SERVCIES, WITHOUT DX PSC HTN W2353GN CONTUSION 11-15-2016 [facility] OF LEFT MEDICAL KNEE SERVCIES, INITIAL PSC ENCOUNTER J069 ACUTE UPPER 10-31-2016 [facility] INFECTION UNSPECIFIED R112 NAUSEA WITH 10-31-2016 [facility], UNSPECIFIED LLC R202 PARESTHESIA 04-17-2016 [facility] [place] [facility] G55056 PAIN IN 04-07-2016 [facility] LEFT HAND [facility] [facility] E06111 PAIN IN 03-07-2016 [facility] UNSPECIFIED RADIOLOGY LIMB GROUP P M7989 OTHER 03-07-2016 [facility] SPECIFIED RADIOLOGY SOFT TISSUE GROUP P DISORDERS R600 LOCALIZED 03-07-2016 [facility] EDEMA RADIOLOGY GROUP P Z043 ENCOUNTER 03-07-2016 [facility] EXAM & RADIOLOGY OBSERVATION GROUP P FOLLOW OTH ACCIDENT [id number] UNSPECIFIED 03-06-2016 [facility] RIGHT FOOT SERVICES, INITIAL PSC ENCOUNTER O37993S ABRASION OF 02-13-2016 [facility] LEFT REGIONAL FOREARM MEDICAL INITIAL ENCOUNTER T148 OTHER 02-13-2016 [facility] UNSPECIFIED EMERGENCY BODY REGION R21 RASH AND 11-04-2015 [facility] OTHER [facility] NONSPECIFIC EMERGENCY SKIN ERUPTION G5601 CARPAL 10-08-2015 [facility] TUNNEL [facility] SYNDROME EMERGENCY RIGHT UPPER LIMB L732 HIDRADENITI 10-08-2015 [facility] S [facility] SUPPURATIVA EMERGENCY G5600 CARPAL 09-28-2015 [facility] TUNNEL [facility] SYNDROME EMERGENCY UNSPECIFIED UPPER LIMB K73487 PAIN IN 08-29-2015 [place] RIGHT WRIST COMMUNTIY HOSPITA H87243 FURUNCLE OF 08-12-2015 [facility] AXILLA & INTER R69675 FURUNCLE 08-12-2015 [facility] HAND [facility] & INTER O00884 CUTANEOUS 08-08-2015 [facility] ABSCESS OF N EMERGENCY RIGHT SERV AXILLA 684 IMPETIGO 07-18-2015 [facility] N EMERGENCY PHYS 7048 OTHER 07-18-2015 [facility] SPECIFIED N EMERGENCY DISEASE OF PHYS HAIR&HAIR FOLLICLES 97077 ASTHMA, 06-11-2015 [facility] UNSPECIFIED MEDICAL , EQUIPMENT UNSPECIFIED STATUS 6823 CELLULITIS 05-27-2015 [facility] EMERGENCY OF UPPER PHYS ARM AND FOREARM 40415 OTHER HAND 04-28-2015 [facility] STR[facility] INC 16875 UNSPECIFIED 02-12-2015 [facility] DENTAL N EMERGENCY CARIES PHYS 95751 JAW PAIN 02-12-2015 [facility] N EMERGENCY PHYS 76881 OTHER 01-24-2015 [facility] [place] INJURY OF RADIOLOGY CHEST WALL 7840 HEADACHE 01-17-2015 [facility] N EMERGENCY PHYS 62657 MIGRAINE 01-08-2015 [facility] UNSP W/O N EMERGENCY INTRACT W/O PHYS STATUS MIGRAINOSUS 7202 SACROILIITI 12-05-2014 [facility] NOT FAMILY ELSEWHERE CHIROPRACT CLASSIFIED 54330 KYPHOSIS 12-05-2014 [place] ACQUIRED FAMILY POSTURAL CHIROPRACT 7391 NONALLOPATH 12-05-2014 [place] IC LESION FAMILY OF CERVICAL CHIROPRACT REGION NEC 7392 NONALLOPATH 12-05-2014 [place] IC LESION FAMILY OF THORACIC CHIROPRACT REGION NEC 7393 NONALLOPATH 12-05-2014 [place] IC LESION FAMILY OF LUMBAR CHIROPRACT REGION NEC 7394 NONALLOPATH 12-05-2014 [place] IC LESION FAMILY OF SACRAL CHIROPRACT REGION NEC 09642 OPEN WOUND 11-29-2014 [facility] WITHOUT & INTER MENTION COMP 38741 PAIN IN 11-12-2014 [facility] JOINT, SITE MEDICAL EQUIPMENT UNSPECIFIED 25845 SEBORRHEA 11-09-2014 [facility] INTER 17864 PAIN IN 10-09-2014 [place] JOINT, COMMUNTIY FOREARM HOSPITA V5721 ENCOUNTER 10-09-2014 [place] FOR COMMUNTIY OCCUPATIONA HOSPITA L THERAPY 42807 OTHER 09-06-2014 [facility] CONVULSIONS N EMERGENCY PHYS 7820 DISTURBANCE 09-05-2014 [place] OF SKIN [facility] EMS 33911 HYPERVENTIL 09-05-2014 [place] ATION [facility] 3540 CARPAL 08-31-2014 [facility] SYNDROME & INTER 87739 GANGLION OF 08-31-2014 [facility] JOINT [facility] & INTER 31508 UNSPECIFIED 08-23-2014 [facility] 48276 OTHER ACUTE 08-19-2014 [facility] N EMERGENCY POSTOPERATI PHYS VE PAIN V1582 PERS HX 08-19-2014 [place] TOBACCO USE COMMUNITY PRESENTING HOSPITA [facility] 54694 MORBID 08-15-2014 [facility] 7812 ABNORMALITY 08-15-2014 [place] [place] [facility] 68359 HEMORRHAGE 08-15-2014 [facility] COMPLICATIN N EMERGENCY G A PHYS PROCEDURE NEC 27064 OTHER 08-15-2014 [facility] SPECIFIED [facility] COMPLICATIO EMS NS NEC V140 PERSONAL 08-15-2014 [facility] PENICILLIN V146 PERSONAL 08-15-2014 [facility] [...] [facility] SPRAIN AND N EMERGENCY STRAIN PHYSI 64334 CONTUSION 06-02-2014 [facility] OF BACK N EMERGENCY PHYSI E9179 OTHER 06-02-2014 [facility] STRIKING N EMERGENCY AGAINST PHYSI W/WO SUBSEQUENT FALL 466.0 466.0 ACUTE 11-14-2013 [place] BRONCHITIS [facility] 493.90 493.90 11-14-2013 [place] ASTHMA, [facility] UNSPECIFIED Hospital 401.9 401.9 12-22-2012 [place] HYPERTENSIO [facility] NOS Hospital 847.1 847.1 12-22-2012 [place] SPRAIN [facility] THORACIC Hospital REGION E849.8 E849.8 12-22-2012 [place] ACCIDENT IN [facility] Hospital E927.0 E927.0 12-22-2012 [place] OVEREXERTIO [facility] FROM Hospital SUDDEN STRENUOUS MOVEMENT E86.0 Dehydration G40.909 Epilepsy, unspecified , not intractable , without status epilepticus J45.901 Unspecified asthma with (acute) exacerbatio n K52.9 Noninfectiv e gastroenter itis and colitis, unspecified Allergies, Adverse Reactions, Alerts Type Drug Allergy Adverse Reaction to Substance Substance Reaction Severity PCN (penicillin) T-[id number]-LVLU/THROAT Unknown Hydrochlorothiazide Unknown Unknown Metoprolol Unknown Unknown [...] CY W 20 MG TA BL ET ID 00 07 08 42 14 00 J [...] AR ZA 50 17 17 90 MA ID 7 34 CY IN E #0 5 [...] ti YL 60 7 00 RE ve ID 00 20 20 54 EN ED 10 16 17 49 S NI 3 47 #0 SO 98 LO 56 NE 4 MG DO SE PK ID 68 01 01 16 3 00 WA [...] on SYPHILIS IGG TEST (EIA) (05-30-2014 11:30) Grazing Aide: Ellen Ji MD FCAP Lab: [facility] Public Health Division of Laboratory Services Lab Address: [address] [place] [address], [address] [place] [address] 05-30-2014 11:30 am Specimen Collection Start Date/Time: Community Health Program Coordinator: Abdulaziz Stoll 06-01-2014 8:46 am Date/Time: Ordering Physician: [facility] 06-04-2014 2:01 pm Results Rpt/Status Change Date/Time: This report contains patient information that must be protected in accordance with the Health Insurance Portability and Accountability Act. SYPHILI NON-AMARA complet S IGG 014 CTIVE ed TEST [...] Procedure [place] [address] [facility] 7 [facility] HYDRATION BLAISE BLAISE EACH ADDITIONA L HOUR INJECTION J1953 [address] LEVETIRAC BLAISE BLAISE ETAM 10 MG URNLS DIP 31857 [facility] 7 [facility] STICK/TAB BLAISE BLAISE LET REAGENT AUTO MICROSCOP Y BLOOD 78178 [facility]. COUNT 7 [facility] COMPLETE BLAISE BLAISE AUTO&AUTO DIFRNTL WBC RADIOLOGI 36769 [facility]. C EXAM 7 [facility] CHEST 2 BLAISE BLAISE VIEWS FRONTAL&L ATERAL PRESSURIZ 91750 [facility] ED/NONPRE [address] [place] [address] SSURIZED BLAISE BLAISE INHALATIO N TREATMENT THERAPEUT 79647 [facility] IC 7 [facility] INJECTION BLAISE BLAISE IV PUSH EACH NEW DRUG INJECTION J0131 [address] ACETAMINO BLAISE BLAISE PHEN 10 MG BASIC 75323 [facility] METABOLIC [address] [place] [address] PANEL BLAISE BLAISE CALCIUM TOTAL THER 71895 [facility] PROPH/DX [address] [place] [address] NJX IV BLAISE BLAISE PUSH SINGLE/1S T SBST/DRUG INJECTION J1100 [address] DEXAMETHO BLAISE BLAISE SONE SODIUM PHOSPHATE 1 MG THER 81563 [facility]. PROPH/DX [address] [place] [address] NJX EA BLAISE BLAISE SEQL IV PUSH SBST/DRUG FAC INJECTION J2405 [address] ONDANSETR BLAISE BLAISE ON HCL PER 1 MG COLLECTIO 00948 [facility] ST. N VENOUS 7 [facility] BLOOD [place] [address] [facility] STREPTOCO 7 [facility] CCUS BLAISE BLAISE GROUP A RADEX 84249 [facility] CELLAROSI SPINE 1 7 [facility] EMERGENC[facility] SPECIFY PHYS LEVEL RADEX 22166 [facility] [place] NARANJO SPINE 7 RADIOLOGY LUMBOSACR AL 2/3 VIEWS [facility]OP[facility]AC 53749 [place] [facility] TIC 7 N FAMILY MANIPULAT CHIROPRAC SRAVAN TX T SPINAL 1-2 REGIONS APPL 68133 [place] [facility] MODALITY 7 N FAMILY 1/> AREAS CHIROPRAC T ULTRASOUN D EA 15 MIN RADIOLOGI 11433 [facility] THAI C EXAM 7 ORTHOPEDI KNEE C COMPLETE ASSOCIAT 4/MORE VIEWS NEUROPLAS 02698 [facility]ESPE TY 7 ORTHOPEDI &/TRANSPO C S MEDIAN ASSOCIAT NRV CARPAL TUNNE INJECTION J2704 [facility] PROPOFOL 7 N N 10 MG COMMUNTIY COMMUNTIY HOSPITA HOSPITA INJECTION J3010 [facility] FENTANYL 7 N N CITRATE COMMUNTIY COMMUNTIY 0.1 MG HOSPITA HOSPITA RINGERS J7120 [facility] LACTATE 7 N N INFUSION COMMUNTIY COMMUNTIY UP TO HOSPITA HOSPITA 1000 CC ANES 43094 [place] [facility] NERVE 7 ANESTHESI MUSCLE A GROUP TDN PS FASCIA&BU RSA FOREARM WRIST ECG 92400 [facility] ROUTINE 7 N N ECG COMMUNTIY COMMUNTIY W/LEAST HOSPITA HOSPITA 12 LDS TRCG ONLY W/O I&R COLLECTIO 00963 [facility] N VENOUS 7 N N BLOOD COMMUNTIY COMMUNTIY VENIPUNCT HOSPITA HOSPITA URE RADIOLOGI 77965 [facility] C EXAM 7 N N CHEST 2 COMMUNTIY COMMUNTIY VIEWS HOSPITA HOSPITA FRONTAL&L ATERAL COMPREHEN 27620 [facility] SIVE 7 N N METABOLIC COMMUNTIY COMMUNTIY PANEL HOSPITA HOSPITA BLOOD 34040 [facility] COUNT 7 N N COMPLETE COMMUNTIY COMMUNTIY AUTOMATED HOSPITA HOSPITA RADIOLOGI 73148 [facility] D[facility] C 7 N EXAMINATI RADIOLOGY ON KNEE 3 GROUP P VIEWS PROMETHAZ Q0169 [facility] HCL 7 REGIONAL REGIONAL 12.5 MG MEDICAL MEDICAL ORAL NOT>48 HR DOSE NONINVASI 94743 [facility] VE 6 MEDICAL, EAR/PULSE LLC OXIMETRY SINGLE DETER IAADIADOO 99336 [facility] 6 MEDICAL, STREPTOCO LLC CCUS GROUP A GLOBAL S9083 [facility] FEE 6 MEDICAL, URGENT LLC CARE CENTERS NEEDLE 88949 [facility] EMG EA 6 [place] EXTREMTY ORTHOPAED W/PARASPI IC NL AREA COMPLETE NERVE 32678 [facility] CONDUCTIO 6 [place] N STUDIES ORTHOPAED 5-6 IC STUDIES RADEX 34807 [facility] HAND 6 [place] MINIMUM 3 ORTHOPAED VIEWS IC RADEX 41116 [facility] MANDY FOOT 6 N COMPLETE RADIOLOGY MINIMUM 3 GROUP P VIEWS SERVICES 98866 [facility] D[facility] MANDY PROVIDED 6 N BTW 10 RADIOLOGY PM&8 AM GROUP P AT 24-HR FACI DUP-SCAN 90930 [facility] D[facility] MANDY XTR VEINS 6 N RADIOLOGY UNILATERA GROUP P L/LIMITED STUDY SERVICES 99359 CHELITA REMY PROVIDED 6 MEDICAL BTW 10 SERVICES, PM&8 AM PSC AT 24-HR FACI SERVICES 57448 KRISTEN PEREZ PROVIDED 6 CIRO GREGORIO BTW 10 PM&8 AM EMERGENCY AT 24-HR FACI INCISION 02839 KRISTEN ROD & 6 CIRO GREGORIO KATARZYNA DRAINAGE ABSCESS EMERGENCY SIMPLE/SI NGLE SERVICES 62142 KRISTEN ROD PROVIDED 5 CIRO COLÓN BTW 10 PM&8 AM EMERGENCY AT 24-HR FACI SERVICES 98163 KRISTEN SALDAÑA PROVIDED 5 JR QUIRINO HARTLEY BTW 10 PM&8 AM EMERGENCY AT 24-HR FACI RADEX 52261 [facility] WRIST 5 N N COMPLETE COMMUNTIY COMMUNTIY MINIMUM 3 HOSPITA HOSPITA VIEWS INCISION 64380 [facility] DELATORRE SCO & 5 [facility]UST[place] DRAINAGE EMERGENCY ABSCESS SERV SIMPLE/SI NGLE ADMN SET A7005 J & L J & L W/SM VOL 5 HOME HOME NONFILTR MEDICAL MEDICAL NEBULIZR EQUIPMENT EQUIPMENT NON-DISPB L RADEX 59281 [facility] FINGR 5 MEM HOSP MEM HOSP MINIMUM 2 INC INC VIEWS INCISION 04935 [facility] LOPEZ & 5 AGUSTIN VINNY DRAINAGE EMERGENCY ABSCESS PHYS COMPLICAT ED/MULTIP LE RADEX 43149 [facility] [place] SAKINA RIBS UNI 5 RADIOLOGY RHO W/POSTERO ANT CH MINIMUM 3 VIEWS CHIROPRAC 22947 RAJESH TALAVERA TIC 5 N FAMILY INEZ MANIPULAT CHIROPRAC SRAVAN TX T SPINAL 3-4 REGIONS THERAPEUT 13517 MAR[facility]W SADAF IC PX 1/> 5 N FAMILY INEZ AREAS CHIROPRAC EACH 15 T MIN EXERCISES APPL 62762 MAR[facility]W SADAF MODALITY 5 N FAMILY INEZ 1/> AREAS CHIROPRAC TRACTION T MECHANICA L APPL 23774 GEORGEVIKASW SADAF MODALITY 5 N FAMILY INEZ 1/> AREAS CHIROPRAC ELEC T STIMJ UNATTENDE D INCISION 54297 [facility] PUND CHR & 5 AGUSTIN DRAINAGE [...] MEDICAL W/AROSL EQUIPMENT EQUIPMENT COMPRS/US GEN THERAPEUT 06544 RAYRADHA SADAF IC PX 1/> 4 N FAMILY INEZ AREAS CHIROPRAC EACH 15 T MIN EXERCISES APPL 68996 GEORGETOW SADAF MODALITY 4 N FAMILY INEZ 1/> AREAS CHIROPRAC ELEC T STIMJ UNATTENDE D APPL 60725 [facility]GETOW SADAF MODALITY 4 N FAMILY INEZ 1/> AREAS CHIROPRAC TRACTION T MECHANICA L CHIROPRAC 84315 GEORGEVIKASW SADAF TIC 4 N FAMILY INEZ MANIPULAT CHIROPRAC SRAVAN TX T SPINAL 3-4 REGIONS CHIROPRAC 45629 RAJESH TALAVERA TIC 4 N FAMILY INEZ MANIPULAT CHIROPRAC SRAVAN TX T SPINAL 3-4 REGIONS THERAPEUT 62690 RAJESH TALAVERA IC PX 1/> 4 N FAMILY INEZ AREAS CHIROPRAC EACH 15 T MIN EXERCISES THERAPEUT 85713 RAJESH TALAVERA IC PX 1/> 4 N FAMILY INEZ AREAS CHIROPRAC EACH 15 T MIN EXERCISES CHIROPRAC 39640 RAJESH TALAVERA TIC 4 N FAMILY INEZ MANIPULAT CHIROPRAC SRAVAN TX T SPINAL 3-4 REGIONS CHIROPRAC 83151 RAJESH TALAVERA TIC 4 N FAMILY INEZ MANIPULAT CHIROPRAC SRAVAN TX T SPINAL 3-4 REGIONS THERAPEUT 40496 RAJESH TALAVERA IC PX 1/> 4 N FAMILY INEZ AREAS CHIROPRAC EACH 15 T MIN EXERCISES APPL 35531 RAJESH TALAVERA MODALITY 4 N FAMILY INEZ 1/> AREAS CHIROPRAC ELEC T STIMJ EA 15 MIN APPL 69896 RAJESH TALAVERA MODALITY 4 N FAMILY INEZ 1/> AREAS CHIROPRAC TRACTION T MECHANICA L APPL 39847 RAJESH TALAVERA MODALITY 4 N FAMILY INEZ 1/> AREAS CHIROPRAC ELEC T STIMJ UNATTENDE D APPL 93406 RAJESH TALAVERA MODALITY 4 N FAMILY INEZ 1/> AREAS CHIROPRAC ELEC T STIMJ UNATTENDE D APPL 38750 RAJESH TALAVERA MODALITY 4 N FAMILY INEZ 1/> AREAS CHIROPRAC TRACTION T MECHANICA L THERAPEUT 18319 RAJESH TALAVERA IC PX 1/> 4 N FAMILY INEZ AREAS CHIROPRAC EACH 15 T MIN EXERCISES CHIROPRAC 45946 RAJESH TALAVERA TIC 4 N FAMILY INEZ MANIPULAT CHIROPRAC SRAVAN TX T SPINAL 3-4 REGIONS MANUAL 92392 [facility]AY[facility]loe BELLVIKASChloe THERAPY 4 N N TQS 1/> COMMUNTIY COMMUNTIY REGIONS HOSPITA HOSPITA EACH 15 MINUTES THERAPEUT 85684 [facility] RAYVIKASChloe IC PX 1/> 4 N N AREAS COMMUNTIY COMMUNTIY EACH 15 HOSPITA HOSPITA MIN EXERCISES OCCUPATIO 47370 RAYChloe MENA NAL 4 N N THERAPY COMMUNTIY COMMUNTIY EVALUATIO HOSPITA HOSPITA N APPL 57772 RAJESH SADAF MODALITY 4 N FAMILY INZE 1/> AREAS CHIROPRAC TRACTION T MECHANICA L APPL 20790 RAJESH SADAF MODALITY 4 N FAMILY INEZ 1/> AREAS CHIROPRAC ELEC T STIMJ UNATTENDE D CHIROPRAC 38046 RAJESH SADAF TIC 4 N FAMILY INEZ MANIPULAT CHIROPRAC SRAVAN TX T SPINAL 3-4 REGIONS CHIROPRAC 14714 RAJESH SADAF TIC 4 N FAMILY INEZ MANIPULAT CHIROPRAC SRAVAN TX T SPINAL 3-4 REGIONS APPL 62331 RAJESH SADAF MODALITY 4 N FAMILY INEZ 1/> AREAS CHIROPRAC TRACTION T MECHANICA L APPL 39528 RAJESH SADAF MODALITY 4 N FAMILY INEZ 1/> AREAS CHIROPRAC ELEC T STIMJ UNATTENDE D THERAPEUT 26858 RAJESH TALAVERA IC PX 1/> 4 N FAMILY INEZ AREAS CHIROPRAC EACH 15 T MIN EXERCISES THERAPEUT 01051 RAJESH TALAVERA IC PX 1/> 4 N FAMILY INEZ AREAS CHIROPRAC EACH 15 T MIN EXERCISES APPL 68375 RAJESH SADAF MODALITY 4 N FAMILY INEZ 1/> AREAS CHIROPRAC TRACTION T MECHANICA L APPL 17777 RAJESH SADAF MODALITY 4 N FAMILY INEZ 1/> AREAS CHIROPRAC ELEC T STIMJ UNATTENDE D CHIROPRAC 13430 RAJESH SADAF TIC 4 N FAMILY INEZ MANIPULAT CHIROPRAC SRAVAN TX T SPINAL 3-4 REGIONS CHIROPRAC 51187 RAJESH SADAF TIC 4 N FAMILY INEZ MANIPULAT CHIROPRAC SRAVAN TX T SPINAL 3-4 REGIONS APPL 09560 RAJESH SADAF MODALITY 4 N FAMILY INEZ 1/> AREAS CHIROPRAC ELEC T STIMJ UNATTENDE D APPL 89327 RAJESH SADAF MODALITY 4 N FAMILY INEZ 1/> AREAS CHIROPRAC TRACTION T MECHANICA L THERAPEUT 89281 RAJESH TALAVERA IC PX 1/> 4 N FAMILY INEZ AREAS CHIROPRAC EACH 15 T MIN EXERCISES THERAPEUT 99002 RAJESH TALAVERA IC PX 1/> 4 N FAMILY INEZ AREAS CHIROPRAC EACH 15 T MIN EXERCISES APPL 89846 RAJESH TALAVERA MODALITY 4 N FAMILY INEZ 1/> AREAS CHIROPRAC TRACTION T MECHANICA L APPL 88755 RAJESH TALAVERA MODALITY 4 N FAMILY INEZ 1/> AREAS CHIROPRAC ELEC T STIMJ UNATTENDE D CHIROPRAC 14732 RAJESH TALAVERA TIC 4 N FAMILY INEZ MANIPULAT CHIROPRAC SRAVAN TX T SPINAL 3-4 REGIONS CHIROPRAC 79362 RAJESH TALAVERA TIC 4 N FAMILY INEZ MANIPULAT CHIROPRAC SRAVAN TX T SPINAL 3-4 REGIONS APPL 29411 RAJESH TALAVERA MODALITY 4 N FAMILY INEZ 1/> AREAS CHIROPRAC ELEC T STIMJ UNATTENDE D THERAPEUT 10931 RAJESH TALAVERA IC PX 1/> 4 N FAMILY INEZ AREAS CHIROPRAC EACH 15 T MIN EXERCISES THERAPEUT 05384 RAJESH TALAVERA IC PX 1/> 4 N FAMILY INEZ AREAS CHIROPRAC EACH 15 T MIN EXERCISES APPL 38612 RAJESH TALAVERA MODALITY 4 N FAMILY INEZ 1/> AREAS CHIROPRAC ELEC T STIMJ UNATTENDE D APPL 27154 RAJESH TALAVERA MODALITY 4 N FAMILY INEZ 1/> AREAS CHIROPRAC TRACTION T MECHANICA L CHIROPRAC 34857 RAJESH TALAVERA TIC 4 N FAMILY INEZ MANIPULAT CHIROPRAC SRAVAN TX T SPINAL 3-4 REGIONS CHIROPRAC 96950 RAJESH TALAVERA TIC 4 N FAMILY INEZ MANIPULAT CHIROPRAC SRAVAN TX T SPINAL 3-4 REGIONS APPL 85504 RAJESH SADAF MODALITY 4 N FAMILY INEZ 1/> AREAS CHIROPRAC TRACTION T MECHANICA L APPL 39650 RAJESH TALAVERA MODALITY 4 N FAMILY INEZ 1/> AREAS CHIROPRAC ELEC T STIMJ UNATTENDE D THERAPEUT 54252 RAJESH TALAVERA IC PX 1/> 4 N FAMILY INEZ AREAS CHIROPRAC EACH 15 T MIN EXERCISES THERAPEUT 58666 RAJESH TALAVERA IC PX 1/> 4 N FAMILY INEZ AREAS CHIROPRAC EACH 15 T MIN EXERCISES CHIROPRAC 33579 RAJESH TALAVERA TIC 4 N FAMILY INEZ MANIPULAT CHIROPRAC SRAVAN TX T SPINAL 3-4 REGIONS AMB [id number] [facility] SERVICE 4 N SCOT T N SCOT T ALS CO EMS CO EMS EMERGENCY TRANSPORT LEVEL 1 GROUND A0425 [facility] MILEAGE 4 N SCOT T N SCOT T PER CO EMS CO EMS STATUTE MILE RADEX [address] [facility]AV[facility] SPINE 4 N FAMILY INEZ LUMBOSACR CHIROPRAC AL 2/3 T VIEWS RADEX 72551 [facility] SADAF SPINE 4 N FAMILY INEZ CERVICAL CHIROPRAC 2 OR 3 T VIEWS WRIST L3908 [facility]ED [facility]VANC[facility] HAND 4 TECHNOLOG TECHNOLOG ORTHOSIS IES INC IES INC EXT CONTROL COCK-UP PREFAB SHOULDER L3670 J & L J & L ORTHOSIS 4 HOME HOME ACROMIO/C MEDICAL MEDICAL LAVICULAR EQUIPMENT EQUIPMENT PREFAB THERAPEUT 40680 [facility] IC 4 N N [facility]ITA HOSPITA INJECTION SUBQ/IM INJECTION J2270 [facility] MORPHINE 4 N N [facility] [place] [facility] [facility] MG NEUROPLAS 48790 [facility] TY [address] [place] [address] &/[facility] S MEDIAN NRV CARPAL [place] INJECTION [id number] [address] [facility] HCL PER 1 MG INJECTION J1100 [address] [facility] S[facility] SODIUM PHOSPHATE 1 MG ANES 94981 ANA BALDWIN ANT NERVE 4 ANESTHESI MUSCLE A GROUP TDN PS FASCIA&BU RSA FOREARM WRIST INJECTION [id number] [address] ON HCL PER 1 MG INJECTION J3010 [facility] FENTANYL [address] [place] [address] 0.1 MG LEVEL III 78397 [facility] PATHOLOGY GROSS&WESLEY ROSCOPIC EXAM EXCISION 64491 BOCARLOON BOCARLOON GANGLION 4 [facility] DORSAL/VO LAR PRIMARY GROUND A0425 [facility] MILEAGE 4 N SCOT T N SCOT T PER CO EMS CO EMS STATUTE MILE AMBULANCE A0429 [facility] SERVICE 4 N SCOT T N SCOT T BLS CO EMS CO EMS EMERGENCY TRANSPORT WRIST L3908 J & L J & L HAND 4 HOME HOME ORTHOSIS MEDICAL MEDICAL EXT EQUIPMENT EQUIPMENT CONTROL COCK-UP PREFAB LEVEL III 00662 [facility] PATHOLOGY GROSS&WESLEY ROSCOPIC EXAM COLLECTIO 37712 ORTIZ DAMON N VENOUS 4 PADMINI BLOOD PEDIATRIC VENIPUNCT S & INTER URE BLOOD 72567 LAB MELVI LAB MELVI COUNT 4 ANDREY ANDREY COMPLETE [employer] AUTOMATED RADEX 81417 [facility] [place] SAKINA WRIST 4 RADIOLOGY RHO COMPLETE MIN[place] [address] [place] [address] [facility] [place] DODGE HEAD/BRAI 4 RADIOLOGY RAY N W/O CONTRAST MATERIAL INCISION 33124 [facility] CELLAROSI & 4 [facility] - YORBA DRAINAGE EMERGENCY PAT ABSCESS PHYS SIMPLE/SI NGLE INCISION 48492 [facility] LOPEZ & 4 AGUSTIN VINNY DRAINAGE EMERGENCY ABSCESS PHYS SIMPLE/SI NGLE RADEX 47597 [facility] [place] CYNTHIA MAT SPINE 4 RADIOLOGY LUMBOSACR AL 2/3 VIEWS Encounters Encounter Start End Date Code Location Performer Type Date EMERGENCY [address] ST[address] 7 7 [facility] BLAISE T VISIT MODERATE SEVERITY EMERGENCY 62976 [facility] DEPT 7 7 EMERGENCY VISIT HIGH PHYSICIAN SEVERITY& S THREAT FUNJ CRITICAL ST. ACCESS 7 7 [facility] BLAISE EMERGENCY 52062 [facility] CELLAROSI 7 7 [facility] T VISIT PHYS HIGH/URGE NT SEVERITY OFFICE 34582 [facility] OUTPATIEN 7 7 N FAMILY T VISIT CHIROPRAC 10 T MINUTES EMERGENCY 60023 [facility] 7 7 [facility] VIS[facility] MODERATE SEVERITY [facility] [place] - 7 7 REGIONAL OUTPATIEN MEDICAL T OFFICE 19713 ANA ANDRE OUTPATIEN 7 7 ORTHOPEDI T VISIT C 15 ASSOCIAT MINUTES EMERGENCY 53405 [facility] STIC 7 7 [facility] EMERGENCY DEPARTMENT T VISIT EMERGENCY MODERATE SEVERITY [facility] [place] - 7 7 REGIONAL OUTPATI MEDICAL T EMERGENCY 80361 [place] 7 7 [facility] MEDICAL T VISIT LIMITED/M INOR PROB [facility] 7 7 N OUTPATIEN COMMUNTIY T HOSPITA EMERGENCY 61063 [facility] 7 [facility] EMERGENCY DEPARTMENT T VISIT EMERGENCY HIGH/URGE NT SEVERITY [facility] [place] [address] 7 N OUTPATIEN COMMUNTIY T HOSPITA EMERGENCY 70409 JOSEFINA-Ulysses ARGUELLO 7 7 MEDICAL DEPARTMEN SERVCIES, T VISIT PSC MODERATE SEVERITY OFFICE 00084 [place] [facility] OUTPATIEN 7 7 ORTHOPEDI T NEW 45 C MINUTES ASSOCIAT EMERGENCY 61357 JUNIPER STIC 7 7 [facility] EMERGENCY DEPARTMENT T VISIT EMERGENCY MODERATE SEVERITY [facility] [place] - 7 7 REGIONAL OUTPATIEN MEDICAL T OFFICE 09365 [facility] TRA OUTPATIEN 6 6 [place] T VISIT ORTHOPAED 10 IC MINUTES OFFICE 32577 [facility] OUT[facility] 6 6 [place] T NEW 30 ORTHOPAED MINUTES IC EMERGENCY 17377 [place] BILLY REMY DEPT 6 6 MEDICAL VISIT SERVICES, HIGH PSC SEVERITY& THREAT FUNCJ EMERGENCY 75409 KRISTEN CORLEY MAR 6 6 [facility] DEPARTMEN T VISIT EMERGENCY MODERATE SEVERITY [facility] [place] - 6 6 [facility] OUTPATIEN MEDICAL T EMERGENCY 95971 [place] 6 6 [facility] DEPARTMEN MEDICAL T VISIT LOW/MODER SEVERITY EMERGENCY 06685 KRISTEN ROD 6 6 [facility] DEPARTMEN T VISIT EMERGENCY MODERATE SEVERITY EMERGENCY 76252 KRISTEN ROD 5 5 [facility] DEPARTMEN T VISIT EMERGENCY MODERATE SEVERITY EMERGENCY 02004 KRISTEN PIPER 5 5 CIRO JG , JR WIN DEPARTMEN T VISIT EMERGENCY MODERATE SEVERITY [facility] 5 N OUTPATI COMMUNTIY T HOSPITA EMERGENCY 69289 MARYS[facility] LOPEZ 5 5 [facility] VINNY DEPARTMEN EMERGENCY T VISIT PHYS MODERATE SEVERITY OFFICE 06661 [facility] 5 5 PADMINI T VISIT PEDIATRIC 15 S & INTER MINUTES EMERGENCY 38577 [facility] NANDINI REDDYO 5 5 [facility] DEPARTMEN EMERGENCY T VISIT SERV HIGH/URGE NT SEVERITY EMERGENCY 58050 [facility] DELANEY JR 5 5 [facility] DEPARTMEN EMERGENCY T VISIT PHYS MODERATE SEVERITY EMERGENCY 47321 [facility] ELAINA URENA 5 5 [facility] DEPARTMEN EMERGENCY T VISIT PHYS MODERATE SEVERITY HOSPITAL [facility] - 5 5 [facility] OUTPATIEN INC T EMERGENCY 87593 [facility] 5 5 [facility] DEPARTMEN INC T VISIT LIMITED/M INOR PROB EMERGENCY 28667 [facility] JESSICA 5 5 [place] VINNY DEPARTMEN EMERGENCY T VISIT PHYS MODERATE SEVERITY EMERGENCY 59277 [facility] MOOSE 5 5 [facility] DEPARTMEN EMERGENCY PAT T VISIT PHYS MODERATE SEVERITY EMERGENCY 67140 [facility] ELAINA URENA 5 5 [place] AMOR DEPARTMEN EMERGENCY T VISIT PHYS MODERATE SEVERITY EMERGENCY 96789 [facility] LOPEZ 5 5 [place] VINNY DEPARTMEN EMERGENCY T VISIT PHYS HIGH/URGE NT SEVERITY EMERGENCY 05564 [facility] ELAINA JR 5 5 [place] AMOR DEPARTMEN EMERGENCY T VISIT PHYS HIGH/URGE NT SEVERITY EMERGENCY 19276 [facility] MICHAEL YAJAIRA 5 5 [place] DEPARTMEN EMERGENCY T VISIT PHYS MODERATE SEVERITY EMERGENCY 28830 [facility] LOPEZ 5 5 [facility] VINNY DEPARTMEN EMERGENCY T VISIT PHYS MODERATE SEVERITY OFFICE 43311 ORTIZ DAMON OUTPATIEN 5 5 PADMINI T VISIT 5 PEDIATRIC MINUTES S & INTER EMERGENCY 77638 [facility] PUNIman CHR 5 5 [facility] DEPARTMEN EMERGENCY T VISIT PHYS MODERATE SEVERITY OFFICE 59937 ORTIZ DAMON OUTPATIEN 5 5 PADMINI T VISIT PEDIATRIC 15 S & INTER MINUTES EMERGENCY 85144 [facility] CELLAROSI 5 5 [facility] DEPARTMEN EMERGENCY PAT T VISIT PHYS MODERATE SEVERITY HOSPITAL AMARILLORADHA - 4 4 N OUTPATIEN COMMUNTIY T HOSPITA EMERGENCY 44634 [facility] CELLAROSI 4 4 [facility] DEPARTMEN EMERGENCY PAT T VISIT PHYS MODERATE SEVERITY OFFICE 47416 RAJESH TALAVERA OUTPATIEN 4 4 N FAMILY INEZ T NEW 30 CHIROPRAC MINUTES T OFFICE 44414 ORTIZ DAMON OUTPATIEN 4 4 PADMINI T VISIT PEDIATRIC 15 S & INTER MINUTES EMERGENCY 11991 AMARILLORADHA 4 4 N DEPARTMEN COMMUNITY T VISIT HOSPITA MODERATE SEVERITY EMERGENCY 46729 [facility] CELLAROSI 4 4 [facility] DEPARTMEN EMERGENCY PAT T VISIT PHYS HIGH/URGE NT SEVERITY HOSPITAL MARELYW - 4 4 N OUTPATIEN COMMUNITY T HOSPITA EMERGENCY 38304 [facility] LINDQUIST 4 4 AGUSTIN RYA DEPARTMEN EMERGENCY T VISIT PHYS LOW/MODER SEVERITY HOSPITAL RAJESH - 4 4 N OUTPATIEN COMMUNTIY T HOSPITA EMERGENCY 40031 AMARILLOVIKAS 4 4 N DEPARTMEN COMMUNTIY T VISIT HOSPITA MODERATE SEVERITY OFFICE 56670 ORTIZ DAMON OUTPATIEN 4 4 PADMINI T VISIT 5 PEDIATRIC MINUTES S & INTER HOSPITAL RAJESH - 4 4 N OUTPATIEN COMMUNITY T HOSPITA EMERGENCY 15500 [facility] JESSICA 4 4 AGUST[facility] VINNY DEPARTMEN EMERGENCY T VISIT PHYS HIGH/URGE NT SEVERITY OFFICE 72822 ORTIZ HYDE OUTPATIEN 4 4 AND T NEW 20 PEDIATRIC MINUTES S & INTER EMERGENCY 85282 [facility] MICHAEL GATES 4 4 [facility] DEPARTMEN EMERGENCY T VISIT PHYSI MODERATE SEVERITY EMERGENCY 04260 [facility] MOOSE 4 4 [facility] DEPARTMEN EMERGENCY PAT T VISIT PHYS MODERATE SEVERITY EMERGENCY 60085 [facility] JESSICA 4 4 [facility] VINNY DEPARTMEN EMERGENCY T VISIT PHYS MODERATE SEVERITY EMERGENCY 51342 [facility] MICHAEL 4 4 [facility] DEPARTMEN EMERGENCY T VISIT PHYSI HIGH/URGE NT SEVERITY Emergency ROMINA Capps MD (ER) 4 22:59 4 01:09 [facility] Emergency ROMINA Ortiz (ER) 3 01:00 3 02:25 [facility]
[2017-08-15 23:43] VITALS: BP 158/94
--- OUTSIDE RECORDS SUMMARY | 2017-08-15 23:46 | External Medical Summary Rpt | CCD ---
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 4 RADIOLOGY LUMBOSACR AL 2/3 VIEWS Encounters Encounter Start End Date Code Location Performer Type Date EMERGENCY 85932 [facility] 7 7 EMERGENCY VISIT HIGH PHYSICIAN SEVERITY& S THREAT FUNJ EMERGENCY [address] ST. 7 7 [facility] B[facility] T VISIT MODERATE SEVERITY [facility]ITICAL [facility] 7 7 [facility] EMERGENCY 29563 [facility] CELLAROSI 7 7 [facility] VISIT PHYS HIGH/URGE NT SEVERITY OFFICE 40229 [facility] OUTPATIEN 7 7 N FAMILY T VISIT CHIROPRAC 10 T MINUTES [facility] - 7 7 REGIONAL OUTPATI MEDICAL T EMERGENCY 38344 CHELITA SMITH 7 7 MEDICAL DEPARTMEN SERVICES T VISIT MODERATE SEVERITY OFFICE 35011 [facility] 7 7 ORTHOPEDI T VISIT C 15 ASSOCIAT MINUTES EMERGENCY 89471 JUNIPER STIC 7 7 [facility] [place] T VISIT EMERGENCY MODERATE SEVERITY EMERGENCY 28844 [place] 7 7 [facility] MEDICAL T VISIT LIMITED/M [facility] - 7 7 [facility] [place] [address] 7 N OUTPATIEN COMMUNTIY T HOSPITA EMERGENCY 99369 KRISTEN REGINE 7 7 [facility] T VISIT EMERGENCY HIGH/URGE NT SEVERITY [facility] [place] [address] 7 N OUTPATIEN COMMUNTIY T HOSPITA EMERGENCY 48516 CHELITA ARGUELLO 7 7 MEDICAL DEPARTMEN SERVCIES, T VISIT PSC MODERATE SEVERITY OFFICE 20160 [facility] 7 7 ORTHOPEDI T NEW 45 C MINUTES ASSOCIAT EMERGENCY 20409 JUNIPER STIC 7 7 [facility] T VISIT EMERGENCY MODERATE SEVERITY [facility] - 7 7 [facility] OFF[facility] 23428 [facility] 6 6 [place] T VISIT ORTHOPAED 10 IC MINUTES OFFICE 81934 [facility] 6 6 [facility] NEW 30 ORTHOPAED MINUTES IC EMERGENCY 15730 CHELITA REMY DEPT 6 6 MEDICAL VISIT SERVICES, HIGH PSC SEVERITY& THREAT FUNCJ EMERGENCY 87160 KRISTEN CORLEY MAR 6 6 [facility] DEPARTMEN T VISIT EMERGENCY MODERATE SEVERITY EMERGENCY 02195 [place] 6 6 [facility] DEPARTMEN MEDICAL T VISIT LOW/MODER SEVERITY [facility] [place] - 6 6 REGIONAL OUTPATIEN MEDICAL T EMERGENCY 40489 KRISTEN ROD 6 6 [facility] [place] DEPARTMEN T VISIT EMERGENCY MODERATE SEVERITY EMERGENCY 35473 KRISTEN ROD 5 5 [facility] [place] DEPARTMEN T VISIT EMERGENCY MODERATE SEVERITY EMERGENCY 77087 KRISTEN SALDAÑA 5 5 CIRO GREGORIO JR QUIRINO DEPARTMEN T VISIT EMERGENCY MODERATE SEVERITY [facility] - 5 5 N OUTPATI COMMUNTIY T HOSPITA EMERGENCY 19517 MARYS[facility] LOPEZ 5 5 [facility] VINNY DEPARTMEN EMERGENCY T VISIT PHYS MODERATE SEVERITY OFFICE 00176 [facility] 5 5 PADMINI T VISIT PEDIATRIC 15 S & INTER MINUTES EMERGENCY 33872 [facility] NANDINI REDDYO 5 5 [facility] DEPARTMEN EMERGENCY T VISIT SERV HIGH/URGE NT SEVERITY EMERGENCY 92930 MARYSOL DELANEY JR 5 5 [facility] AMRO DEPARTMEN EMERGENCY T VISIT PHYS MODERATE SEVERITY EMERGENCY 49597 [facility] ELAINA URENA 5 5 [facility] AMOR DEPARTMEN EMERGENCY T VISIT PHYS MODERATE SEVERITY EMERGENCY 37708 [facility] 5 5 [facility] DEPARTMEN INC T VISIT LIMITED/M [facility] - 5 5 [facility] OUTPATIEN INC T EMERGENCY 30625 [facility] JESSICA 5 5 [facility] VINNY DEPARTMEN EMERGENCY T VISIT PHYS MODERATE SEVERITY EMERGENCY 19965 [facility] MOOSE 5 5 [facility] DEPARTMEN EMERGENCY PAT T VISIT PHYS MODERATE SEVERITY EMERGENCY 79408 [facility] ELAINA URENA 5 5 [facility] AMOR DEPARTMEN EMERGENCY T VISIT PHYS MODERATE SEVERITY EMERGENCY 68642 [facility] LOPEZ 5 5 [facility]UST[facility] VINNY DEPARTMEN EMERGENCY T VISIT PHYS HIGH/URGE NT SEVERITY EMERGENCY 74512 [facility] ELAINA JR 5 5 [facility] AMOR DEPARTMEN EMERGENCY T VISIT PHYS HIGH/URGE NT SEVERITY EMERGENCY 91443 [facility] MICHAEL YAJAIRA 5 5 [facility] DEPARTMEN EMERGENCY T VISIT PHYS MODERATE SEVERITY EMERGENCY 42802 [facility] LOPEZ 5 5 [facility] VINNY DEPARTMEN EMERGENCY T VISIT PHYS MODERATE SEVERITY OFFICE 68055 ORTIZ DAMON OUTPATIEN 5 5 PADMINI T VISIT 5 PEDIATRIC MINUTES S & INTER EMERGENCY 66803 [facility] ELYSE CHR 5 5 [facility] DEPARTMEN EMERGENCY T VISIT PHYS MODERATE SEVERITY OFFICE 46663 [facility] NELSON OUTPATIEN 5 5 PADMINI T VISIT PEDIATRIC 15 S & INTER MINUTES EMERGENCY 43920 [facility] CELLAROSI 5 5 [facility] DEPARTMEN EMERGENCY PAT T VISIT PHYS MODERATE SEVERITY [facility]OSPITAL B[facility]ST[facility] - 4 4 N OUTPATIEN COMMUNTIY T HOSPITA EMERGENCY 86001 [facility] CELLAROSI 4 4 [facility] DEPARTMEN EMERGENCY PAT T VISIT PHYS MODERATE SEVERITY OFFICE 67513 VAISHALIMARGARETTE DAMON OUTPATIEN 4 4 PADMINI T VISIT PEDIATRIC 15 S & INTER MINUTES OFFICE 46901 RAJESH TALAVERA OUTPATIEN 4 4 N FAMILY INEZ T NEW 30 CHIROPRAC MINUTES T EMERGENCY 96346 [facility] 4 4 N DEPARTMEN COMMUNITY T VISIT HOSPITA MODERATE SEVERITY EMERGENCY 74927 [facility] CELLAROSI 4 4 [facility] DEPARTMEN EMERGENCY PAT T VISIT PHYS HIGH/URGE NT SEVERITY HOSPITAL RAJESH - 4 4 N OUTPATIEN COMMUNITY T HOSPITA HOSPITAL RAJESH - 4 4 N OUTPATIEN COMMUNTIY T HOSPITA EMERGENCY 89444 RAJESH 4 4 N DEPARTMEN COMMUNTIY T VISIT HOSPITA MODERATE SEVERITY EMERGENCY 88780 [facility] AMEENA 4 4 [facility] RYA DEPARTMEN EMERGENCY T VISIT PHYS LOW/MODER SEVERITY OFFICE 31421 [facility] NELSON OUTPATIEN 4 4 PADMINI T VISIT 5 PEDIATRIC MINUTES S & INTER HOSPITAL RAJESH - 4 4 N OUTPATIEN COMMUNITY T HOSPITA EMERGENCY 39815 [facility] JESSICA 4 4 [facility] VINNY DEPARTMEN EMERGENCY T VISIT PHYS HIGH/URGE NT SEVERITY OFFICE 43138 [facility] HYDE OUTPATIEN 4 4 AND T NEW 20 PEDIATRIC MINUTES S & INTER EMERGENCY 68556 [facility] MICHAEL GATES 4 4 [facility] DEPARTMEN EMERGENCY T VISIT PHYSI MODERATE SEVERITY EMERGENCY 24341 [facility] MOOSE 4 4 [facility] DEPARTMEN EMERGENCY PAT T VISIT PHYS MODERATE SEVERITY EMERGENCY 63372 [facility] JESSICA 4 4 [facility] VINNY DEPARTMEN EMERGENCY T VISIT PHYS MODERATE SEVERITY EMERGENCY 61191 [facility] MICHAEL 4 4 [facility] DEPARTMEN EMERGENCY T VISIT PHYSI HIGH/URGE NT SEVERITY
--- OUTSIDE RECORDS SUMMARY | 2017-08-15 23:46 | External Medical Summary Rpt | CCD ---
Author Author , SALLIE Organization [facility] Address Unknown Phone [email or web address] Care Team Providers Care Social Service Agency Director Name Role Phone [employer] Unavailable Unavailable INC, [employer] Unavailable Unavailable INC, [employer] [facility], Unavailable Unavailable [facility] Unavailable Unavailable & INTER, [facility] Unavailable Unavailable HOSPITAL, [facility] THAI ANDRE Unavailable Unavailable Cherry [facility], [email or web address], Unavailable Unavailable [facility], [email or web address] LUIS SMITH Unavailable Unavailable CELLAROSI - YORBA, Unavailable Unavailable CELLAROSI - YORBA CELLAROSI - YORBA Unavailable Unavailable PAT, CELLAROSI - YORBA PAT [facility] Unavailable Unavailable ORTHOPAEDIC, [facility], Unavailable Unavailable [facility] SAUNDRA, SAUNDRA Unavailable Unavailable RENUKA GRAYSON Unavailable Unavailable DULAI, DULAI Unavailable Unavailable DULAI MANDY, DULAI MANDY Unavailable Unavailable LOPEZ VINNY, LOPEZ Unavailable Unavailable VINNY [facility] Unavailable Unavailable GROUP P, [facility] Unavailable Unavailable MEDICAL, [facility] Un[facility] Unavailable [facility]available HOSPITA, [facility] Unavailable Unavailable CHIROPRACT, [facility] Un[facility] Unavailable EMS, [facility] SAKINA RHO, SAKINA [...] PADMINI QUINN WESLEY, QUINN WESLEY Unavailable Unavailable [facility] Unavailable Unavailable EMERGENCY, [facility] Unavailable Unavailable ASSOCIAT, [facility] Unavailable Unavailable SERVCIES, [...] Unavailable Unavailable [facility] Unavailable Unavailable [facility]ERG[facility]Y PH[facility], ON LICENSE OF [facility] EMERGENCY PHYS ON LICENSE OF [facility] Unavailable Unavailable EMERGENCY PHYSI, ON LICENSE OF [facility] EMERGENCY PHYSI ON LICENSE OF [facility] Unavailable Unavailable EMERGENCY SERV, ON LICENSE OF [facility] EMERGENCY SERV [facility] BLAISE, Unavailable Unavailable [facility] LINDQUIST RYA, LINDQUIST Unavailable Unavailable RYA DODGE [...] Diagnosis DOS Provider Status E860 DEHYDRATION 05-17-2017 [facility] BLAISE [id number] EPILEPSY 05-17-[address] [facility] NOT [place] INTRACT W/O BLAISE STATUS EPILEPTICUS [id number] UNSPECIFIED 05-17-2017 . ASTHMA [place] WITH ACUTE BLAISE EXACERBATIO N K529 NONINFECTIV 05-17-2017 . [facility] [place] [facility] ITIS & COLITIS UNS R0989 OTH SPEC SX 05-17-2017 [facility] [place] INVLV THE BLA[place] CIRC & RESP SYS R1110 VOMITING 05-17-2017 . UNSPECIFIED [place] BLAISE R51 HEADACHE 05-17-2017 . [place] BLAISE M545 LOW BACK 04-15-2017 [facility] [place] PAIN RADIOLOGY L041WIN CONTUSION 04-15-2017 [facility] LOWER BACK N EMERGENCY & PELVIS PHYS INITIAL ENCOUNTER [id number] UNSPECIFIED 04-15-2017 [facility] EMERGENCY INITIAL PHYS ENCOUNTER M5386 OTHER 04-12-2017 [facility] SPECIFIED FAMILY DORSOPATHIE CHIROPRACT S LUMBAR REGION M9903 SEGMENTAL & 04-12-2017 [facility] SOMATIC FAMILY DYSFUNCTION CHIROPRACT OF LUMBAR REGION M9905 SEGMENTAL & 04-12-2017 [facility] SOMATIC FAMILY DYSFUNCTION CHIROP[facility]CT OF PELVIC REGION M9985 OTHER 04-12-2017 [facility] BIOMECHANIC FAMILY AL LESIONS CH[facility]OP[facility]CT OF PELVIC REGION L739 FOLLICULAR 04-07-2017 [facility] DISORDER MEDICAL UNSPECIFIED SERVICES [id number] PAIN IN 02-17-2017 [facility] LEFT KNEE ORTHOPEDIC ASSOCIAT M2392 UNSPECIFIED 12-20-2016 [facility] DERANGEMENT EMERGENCY OF LEFT KNEE Z5189 ENCOUNTER 12-01-2016 [facility] FOR OTHER REGIONAL SPECIFIED MEDICAL AFTERCARE G5602 CARPAL 11-30-2016 [facility] SYNDROME ASSOCIAT LEFT UPPER LIMB Q88330 UNSPECIFIED 11-30-2016 [facility] ASTHMA COMMUNTIY UNCOMPLICAT HOSPITA ED R300 DYSURIA 11-27-2016 [facility] EMERGENCY N58912 ENCOUNTER 11-18-2016 [facility] [place] FOR [facility] PREPROCEDUR AL RESPIRATORY EXAM B16056 ENCOUNTER 11-18-2016 [facility] FOR OTHER COMMUNTIY PREPROCEDUR HOSPITA AL EXAMINATION R030 ELEVATED 11-15-2016 [facility] BLOOD-PRESS MEDICAL URE READING SERVCIES, WITHOUT DX PSC HTN [id number] CONTUSION 11-15-2016 [facility] OF LEFT MEDICAL KNEE SERVCIES, INITIAL PSC ENCOUNTER J069 ACUTE UPPER 10-31-2016 [facility] INFECTION UNSPECIFIED R112 NAUSEA WITH 10-31-2016 [facility], UNSPECIFIED LLC R202 PARESTHESIA 04-17-2016 [facility] [place] [facility] H47557 PAIN IN 04-07-2016 [facility] LEFT HAND [place] [facility] J75483 PAIN IN 03-07-2016 [facility] UNSPECIFIED RADIOLOGY LIMB GROUP P M7989 OTHER 03-07-2016 [facility] SPECIFIED RADIOLOGY SOFT TISSUE GROUP P DISORDERS R600 LOCALIZED 03-07-2016 [facility] EDEMA RADIOLOGY GROUP P Z043 ENCOUNTER 03-07-2016 [facility] EXAM & RADIOLOGY OBSERVATION GROUP P FOLLOW OTH ACCIDENT [id number] UNSPECIFIED 03-06-2016 [facility] RIGHT FOOT SERVICES, INITIAL PSC ENCOUNTER [id number] ABRASION OF 02-13-2016 [facility] LEFT REGIONAL FOREARM MEDICAL INITIAL ENCOUNTER T148 OTHER 02-13-2016 [facility] OF [facility] UNSPECIFIED EMERGENCY BODY REGION R21 RASH AND 11-04-2015 [facility] OTHER [facility] NONSPECIFIC EMERGENCY SKIN ERUPTION G5601 CARPAL 10-08-2015 [facility] TUNNEL [facility] SYNDROME EMERGENCY RIGHT UPPER LIMB L732 HIDRADENITI 10-08-2015 [facility] S SPECULATOR [place] SUPPURATIVA EMERGENCY G5600 CARPAL 09-28-2015 [facility] TUNNEL [facility] SYNDROME EMERGENCY UNSPECIFIED UPPER LIMB G87412 PAIN IN 08-29-2015 [facility] RIGHT WRIST COMMUNTIY HOSPITA U40419 FURUNCLE OF 08-12-2015 [facility] AXILL[facility] & INTER L90368 FURUNCLE 08-12-2015 [facility] & INTER R01205 CUTANEOUS 08-08-2015 [facility] ABSCESS OF N EMERGENCY RIGHT SERV AXILLA 684 IMPETIGO 07-18-2015 [facility] PHYS 7048 OTHER 07-18-2015 [facility] SPECIFIED N EMERGENCY DISEASE OF PHYS HAIR&HAIR FOLLICLES 17072 ASTHMA, 06-11-2015 [facility] UNSPECIFIED MEDICAL , EQUIPMENT UNSPECIFIED STATUS 6823 CELLULITIS 05-27-2015 [facility] ABSCESS N EMERGENCY OF UPPER PHYS ARM AND FOREARM 92677 OTHER HAND 04-28-2015 [facility] STRAIN INC 01484 UNSPECIFIED 02-12-2015 [facility] DENTAL N EMERGENCY CARIES PHYS 24129 JAW PAIN 02-12-2015 [facility] N EMERGENCY PHYS 17371 OTHER 01-24-2015 [facility] [place] INJURY OF RADIOLOGY CHEST WALL 7840 HEADACHE 01-17-2015 [facility] N EMERGENCY PHYS 57682 MIGRAINE 01-08-2015 [facility] UNSP W/O N EMERGENCY INTRACT W/O PHYS STATUS MIGRAINOSUS 7202 SACROILIITI 12-05-2014 [facility] S NOT FAMILY ELSEWHERE CHIROPRACT CLASSIFIED 76397 KYPHOSIS 12-05-2014 [facility] ACQUIRED FAMILY POSTURAL CHIROPRACT 7391 NONALLOPATH 12-05-2014 [facility] IC LESION FAMILY OF CERVICAL CHIROPRACT REGION NEC 7392 NONALLOPATH 12-05-2014 [facility] IC LESION FAMILY OF THORACIC CHIROPRACT REGION NEC 7393 NONALLOPATH 12-05-2014 [facility] IC LESION FAMILY OF LUMBAR CHIROPRACT REGION NEC 7394 NONALLOPATH 12-05-2014 [facility] IC LESION FAMILY OF SACRAL CHIROPRACT REGION NEC 97896 OPEN WOUND 11-29-2014 [facility] WITHOUT & INTER MENTION COMP 57679 PAIN IN 11-12-2014 [facility] JOINT, SITE MEDICAL EQUIPMENT UNSPECIFIED 84411 SEBORRHEA 11-09-2014 [facility] & INTER 43041 PAIN IN 10-09-2014 [facility] JOINT, COMMUNTIY FOREARM HOSPITA V5721 ENCOUNTER 10-09-2014 [facility] FOR COMMUNTIY OCCUPATIONA HOSPITA L THERAPY 06731 OTHER 09-06-2014 [facility] CONVULSIONS N EMERGENCY PHYS 7820 DISTURBANCE 09-05-2014 [facility] OF SKIN [facility] SENS[facility] 43894 HYPERVENTIL 09-05-2014 [facility] ATION [facility] 3540 CARPAL 08-31-2014 [facility] SYNDROME & INTER 94906 GANGLION OF 08-31-2014 [facility] JOINT [facility] & INTER 74079 UNSPECIFIED 08-23-2014 [facility] INC 17168 OTHER ACUTE 08-19-2014 [facility] N EMERGENCY POSTOPERATI PHYS VE PAIN V1582 PERS HX 08-19-2014 [facility] TOBACCO USE COMMUNITY PRESENTING HOSPITA [facility] 41378 MORBID 08-15-2014 [facility] [facility] 7812 ABNORMALITY 08-15-2014 [facility] [place] [facility] 33359 HEMORRHAGE 08-15-2014 [facility] COMPLICATIN N EMERGENCY G A PHYS PROCEDURE NEC 25268 OTHER 08-15-2014 [facility] SPECIFIED [facility] COMPLICATIO EMS NS [...] OTHER PHYS SPECIFIED SITE 7842 SWELLING 06-13-2014 [facility] MASS OR N EMERGENCY LUMP IN PHYS HEAD AND NECK 7242 LUMBAGO 06-02-2014 [facility] [place] [facility] 8472 LUMBAR 06-02-2014 [facility] SPRAIN AND N EMERGENCY STRAIN PHYSI 99781 CONTUSION 06-02-2014 [facility] OF BACK N EMERGENCY PHYSI E9179 [...] E CY 0. 1% CR EA M CO 00 07 08 42 14 00 J [...] AR ZA 50 17 17 90 MA CO 7 34 CY IN E #0 5 [...] PA CY M 25 MG CA P PEARLTA 16 01 02 9. 9 00 J [...] 60 1- 7- 00 00 RE ve CO 00 20 20 54 EN ED 10 16 17 49 S NI 3 47 #0 SO 98 LO 56 NE 4 MG DO SE PK CO 68 01 01 16 3 00 WA [...] DOS Code Location Performer Comment URNLS DIP [address] STICK/TAB BLA[place] BLAISE LET REAGENT AUTO MICROSCOP Y BLOOD 25522 [facility] COUNT 7 [facility] COMPLETE [place] AUTO&AUTO DIFRNTL WBC BASIC 78501 [facility] METABOLIC 7 [facility] PANEL BLAISE BLAISE CALCIUM TOTAL COLLECTIO 66863 [facility] N VENOUS 7 [facility] [place]LOOD [place] [address] [facility] STREPTOCO 7 [facility] CCUS BLAISE BLAISE GROUP A RADIOLOGI 82113 RADIOLOGY [place] C EXAM 7 CHEST 2 ASSOCIATE VIEWS S OF [facility] FRONTAL&L ATERAL PRESSURIZ 72865 [facility] ED/NONPRE [address] [place] [address] SSURIZED BLAISE BLAISE INHALATIO N TREATMENT THERAPEUT 26379 [facility] IC [facility] INJECTION BLAISE BLAISE IV PUSH EACH NEW DRUG INJECTION J0131 [address] ACETAMINO BLAISE BLAISE PHEN 10 MG THER 72222 [facility] PROPH/DX 7 [facility] NJX EA BLAISE BLAISE SEQL IV PUSH SBST/DRUG FAC THER 47939 [facility] PROPH/DX [address] [place] [address] NJX IV BLAISE BLAISE PUSH SINGLE/1S T SBST/DRUG INJECTION J1100 [address] DEXAMETHO BLAISE BLAISE SONE SODIUM PHOSPHATE 1 [place] [address] [facility] INFUSION [address] [place] [address] HYDRATION BLAISE BLAISE EACH ADDITIONA L HOUR INJECTION J1953 [address] LEVETIRAC BLAISE BLAISE ETAM 10 MG INJECTION J2405 [address] ONDANSETR BLAISE BLAISE ON HCL PER 1 MG RADEX 82298 [facility] NRAANJO SPINE 7 RADIOLOGY LUMBOSACR AL 2/3 VIEWS RADEX 52813 [facility] CELL[facility] SPINE 1 7 AGUSTIN - YORBA VIEW EMERGENCY SPECIFY PHYS LEVEL CHIROPRAC 09266 RAJ[facility] TALAVERA TIC 7 N FAMILY MANIPULAT CHIROPRAC SRAVAN TX T SPINAL 1-2 REGIONS APPL 21285 RAJESH TALAVERA MODALITY 7 N FAMILY 1/> AREAS CHIROPRAC T ULTRASOUN D EA 15 MIN RADIOLOGI 88113 ANA ANDRE C EXAM 7 ORTHOPEDI KNEE C COMPLETE ASSOCIAT 4/MORE VIEWS RINGERS J7120 [facility] LACTATE 7 N N INFUSION COMMUNTIY COMMUNTIY UP TO HOSPITA HOSPITA 1000 CC ANES 03652 [facility] NERVE 7 ANESTHESI MUSCLE A GROUP TDN PS FASCIA&BU RSA FOREARM WRIST INJECTION J2704 [facility] PROPOFOL 7 N N 10 MG COMMUNTIY COMMUNTIY HOSPITA HOSPITA INJECTION J3010 [facility] FENTANYL 7 N N CITRATE COMMUNTIY COMMUNTIY 0.1 MG HOSPITA HOSPITA NEUROPLAS 30116 [facility] TY 7 N N &/TRANSPO COMMUNTIY COMMUNTIY S MEDIAN HOSPITA HOSPITA NRV CARPAL TUNNE BLOOD 90117 [facility] COUNT 7 N N COMPLETE COMMUNTIY COMMUNTIY AUTOMATED HOSPITA HOSPITA COMPREHEN 47215 [facility] SIVE 7 N N METABOLIC COMMUNTIY COMMUNTIY PANEL HOSPITA HOSPITA COLLECTIO 36068 [facility] N VENOUS 7 N N BLOOD COMMUNTIY COMMUNTIY VENIPUNCT HOSPITA HOSPITA URE ECG 97266 [facility] ROUTINE 7 N N ECG COMMUNTIY COMMUNTIY W/LEAST HOSPITA HOSPITA 12 LDS TRCG ONLY W/O I&R RADIOLOGI 24058 [facility] [place] NARANJO C EXAM 7 RADIOLOGY CHEST 2 VIEWS FRONTAL&L ATERAL RADIOLOGI 06751 [facility] C 7 N EXAMINATI RADIOLOGY ON KNEE 3 GROUP P VIEWS PROMETHAZ Q0169 [facility] HCL 7 REGIONAL REGIONAL 12.5 MG MEDICAL MEDICAL ORAL NOT>48 HR DOSE NONINVASI 58376 [facility]CO 6 MEDICAL, EAR/PULSE LLC OXIMETRY SINGLE DETER IAADIADOO 99064 [facility]YSON 6 MEDICAL, STREPT[facility] LLC CCUS GROUP A GLOBAL S9083 [facility] FEE 6 MEDICAL, URGENT LLC CARE CENTERS NEEDLE 98583 [facility] EMG EA 6 [place] EXTREMTY ORTHOPAED W/PARASPI IC NL AREA COMPLETE NERVE 17164 [facility] CONDUCTIO 6 [place] N STUDIES ORTHOPAED 5-6 IC STUDIES RADEX 30891 [facility] [place] HAND 6 [place] MINIMUM 3 ORTHOPAED VIEWS IC DUP-SCAN 89598 [facility] DULKLARISSA MANDY XTR VEINS 6 N RADIOLOGY UNILATERA GROUP P L/LIMITED STUDY RADEX 58687 [facility] DULAI MANDY FOOT 6 N COMPLETE RADIOLOGY MINIMUM 3 GROUP P VIEWS SERVICES 21459 [facility] FABI MANDY PROVIDED 6 N BTW 10 RADIOLOGY PM&8 AM GROUP P AT 24-HR FACI SERVICES 18887 JOSEFINA-I BILLY REMY PROVIDED 6 MEDICAL BTW 10 SERVICES, PM&8 AM PSC AT 24-HR FACI SERVICES 40691 KRISTEN PEREZ PROVIDED 6 CIRO GREGORIO BTW 10 PM&8 AM EMERGENCY AT 24-HR FACI INCISION 48714 KRISTEN ROD & 6 CIRO GREGORIO KATARZYNA DRAINAGE ABSCESS EMERGENCY SIMPLE/SI NGLE SERVICES 41336 KRISTEN ROD PROVIDED 5 CIRO COLÓN BTW 10 PM&8 AM EMERGENCY AT 24-HR FACI SERVICES 52044 KRISTEN SALDAÑA PROVIDED 5 JR QUIRINO HARTLEY BTW 10 PM&8 AM EMERGENCY AT 24-HR FACI RADEX 39400 [facility] [place] SAKINA WRIST 5 RADIOLOGY RHO COMPLETE MINIMUM 3 VIEWS INCISION 36795 [facility] NANDINI SCO & 5 AGUSTIN DRAINAGE EMERGENCY ABSCESS SERV SIMPLE/SI NGLE ADMN SET A7005 J & L J & L W/SM VOL 5 HOME HOME NONFILTR MEDICAL MEDICAL NEBULIZR EQUIPMENT EQUIPMENT NON-DISPB L RADEX 67466 [facility] STAHL FINGR 5 MEM HOSP MEM HOSP MINIMUM 2 INC INC VIEWS INCISION 51268 [facility] LOPZE & 5 AGUSTIN VINNY DRAINAGE EMERGENCY ABSCESS PHYS COMPLICAT ED/MULTIP LE RADEX 36996 [facility] [place] SAKINA RIBS UNI 5 RADIOLOGY RHO W/POSTERO ANT CH MINIMUM 3 VIEWS APPL 51605 [facility] SADAF MODALITY 5 N FAMILY INEZ 1/> AREAS CHIROPRAC ELEC T STIMJ UNATTENDE D APPL 91401 [facility] SADAF MODALITY 5 N FAMILY INEZ 1/> AREAS CHIROPRAC TRACTION T MECHANICA L THERAPEUT 81365 RAJESH TALAVERA IC PX 1/> 5 N FAMILY INEZ AREAS CHIROPRAC EACH 15 T MIN EXERCISES CHIROPRAC 21165 RAJESH TALAVERA TIC 5 N FAMILY INEZ MANIPULAT CHIROPRAC SRAVAN TX T SPINAL 3-4 REGIONS INCISION 83187 [facility] PUND CHR & 5 AGUSTIN DRAINAGE EMERGENCY [...] MEDICAL W/AROSL EQUIPMENT EQUIPMENT COMPRS/US GEN THERAPEUT 88485 RAJESH TALAVERA IC PX 1/> 4 N FAMILY INEZ AREAS CHIROPRAC EACH 15 T MIN EXERCISES CHIROPRAC 20156 MARELYW SADAF TIC 4 N FAMILY INEZ MANIPULAT CHIROPRAC SRAVAN TX T SPINAL 3-4 REGIONS APPL 55221 GEORGETOW SADAF MODALITY 4 N FAMILY INEZ 1/> AREAS CHIROPRAC TRACTION T MECHANICA L APPL 51182 GEORGETOW SADAF MODALITY 4 N FAMILY INEZ 1/> AREAS CHIROPRAC ELEC T STIMJ UNATTENDE D CHIROPRAC 15495 RAJESH TALAVERA TIC 4 N FAMILY INEZ MANIPULAT CHIROPRAC SRAVAN TX T SPINAL 3-4 REGIONS THERAPEUT 02227 RAJESH TALAVERA IC PX 1/> 4 N FAMILY INEZ AREAS CHIROPRAC EACH 15 T MIN EXERCISES THERAPEUT 91850 RAJESH TALAVERA IC PX 1/> 4 N FAMILY INEZ AREAS CHIROPRAC EACH 15 T MIN EXERCISES CHIROPRAC 14374 RAJESH TALAVERA TIC 4 N FAMILY INEZ MANIPULAT CHIROPRAC SRAVAN TX T SPINAL 3-4 REGIONS CHIROPRAC 13148 RAJESH TALAVERA TIC 4 N FAMILY INEZ MANIPULAT CHIROPRAC SRAVAN TX T SPINAL 3-4 REGIONS APPL 41360 RAJESH TALAVERA MODALITY 4 N FAMILY INEZ 1/> AREAS CHIROPRAC TRACTION T MECHANICA L THERAPEUT 34958 RAJESH TALAVERA IC PX 1/> 4 N FAMILY INEZ AREAS CHIROPRAC EACH 15 T MIN EXERCISES APPL 46942 RAJESH TALAVERA MODALITY 4 N FAMILY INEZ 1/> AREAS CHIROPRAC ELEC T STIMJ EA 15 MIN APPL 14157 RAJESH TALAVERA MODALITY 4 N FAMILY INEZ 1/> AREAS CHIROPRAC ELEC T STIMJ UNATTENDE D APPL 60154 RAJESH TALAVERA MODALITY 4 N FAMILY INEZ 1/> AREAS CHIROPRAC ELEC T STIMJ UNATTENDE D THERAPEUT 81646 RAJESH TALAVERA IC PX 1/> 4 N FAMILY INEZ AREAS CHIROPRAC EACH 15 T MIN EXERCISES APPL 98170 RAJESH TALAVERA MODALITY 4 N FAMILY INEZ 1/> AREAS CHIROPRAC TRACTION T MECHANICA L CHIROPRAC 52957 RAJESH TALAVERA TIC 4 N FAMILY INEZ MANIPULAT CHIROPRAC SRAVAN TX T SPINAL 3-4 REGIONS OCCUPATIO 71886 RAYChloe MENA NAL 4 N N THERAPY COMMUNTIY COMMUNTIY EVALUATIO HOSPITA HOSPITA N THERAPEUT 45445 [place] RAJESH IC PX 1/> 4 N N AREAS COMMUNTIY COMMUNTIY EACH 15 HOSPITA HOSPITA MIN EXERCISES MANUAL 07850 RAJESH MENA THERAPY 4 N N TQS 1/> COMMUNTIY COMMUNTIY REGIONS HOSPITA HOSPITA EACH 15 MINUTES APPL 63261 RAJESH SADAF MODALITY 4 N FAMILY INEZ 1/> AREAS CHIROPRAC TRACTION T MECHANICA L CHIROPRAC 46082 RAJESH TALAVERA TIC 4 N FAMILY INEZ MANIPULAT CHIROPRAC SRAVAN TX T SPINAL 3-4 REGIONS APPL 16052 RAJESH SADAF MODALITY 4 N FAMILY INEZ 1/> AREAS CHIROPRAC ELEC T STIMJ UNATTENDE D APPL 22526 RAJESH SADAF MODALITY 4 N FAMILY INEZ 1/> AREAS CHIROPRAC ELEC T STIMJ UNATTENDE D APPL 62345 RAJESH SADAF MODALITY 4 N FAMILY INEZ 1/> AREAS CHIROPRAC TRACTION T MECHANICA L CHIROPRAC 55008 RAJESH TALAVERA TIC 4 N FAMILY INEZ MANIPULAT CHIROPRAC SRAVAN TX T SPINAL 3-4 REGIONS THERAPEUT 29357 RAJESH TALAVERA IC PX 1/> 4 N FAMILY INEZ AREAS CHIROPRAC EACH 15 T MIN EXERCISES THERAPEUT 21820 RAJESH TALAVERA IC PX 1/> 4 N FAMILY INEZ AREAS CHIROPRAC EACH 15 T MIN EXERCISES CHIROPRAC 26976 RAJESH TALAVERA TIC 4 N FAMILY INEZ MANIPULAT CHIROPRAC SRAVAN TX T SPINAL 3-4 REGIONS APPL 08089 RAJESH SADAF MODALITY 4 N FAMILY INEZ 1/> AREAS CHIROPRAC TRACTION T MECHANICA L APPL 55144 RAJESH SADAF MODALITY 4 N FAMILY INEZ 1/> AREAS CHIROPRAC ELEC T STIMJ UNATTENDE D APPL 53593 RAJESH SADAF MODALITY 4 N FAMILY INEZ 1/> AREAS CHIROPRAC ELEC T STIMJ UNATTENDE D APPL 01243 RAJESH SADAF MODALITY 4 N FAMILY INEZ 1/> AREAS CHIROPRAC TRACTION T MECHANICA L CHIROPRAC 46338 RAJESH SADAF TIC 4 N FAMILY INEZ MANIPULAT CHIROPRAC SRAVAN TX T SPINAL 3-4 REGIONS THERAPEUT 96061 RAJESH TALAVERA IC PX 1/> 4 N FAMILY INEZ AREAS CHIROPRAC EACH 15 T MIN EXERCISES THERAPEUT 14756 RAJESH TALAVERA IC PX 1/> 4 N FAMILY INEZ AREAS CHIROPRAC EACH 15 T MIN EXERCISES CHIROPRAC 83750 RAJESH TALAVERA TIC 4 N FAMILY INEZ MANIPULAT CHIROPRAC SRAVAN TX T SPINAL 3-4 REGIONS APPL 09202 RAJESH TALAVERA MODALITY 4 N FAMILY INEZ 1/> AREAS CHIROPRAC TRACTION T MECHANICA L APPL 24604 RAJESH SADAF MODALITY 4 N FAMILY INEZ 1/> AREAS CHIROPRAC ELEC T STIMJ UNATTENDE D APPL 41516 RAJESH SADAF MODALITY 4 N FAMILY INEZ 1/> AREAS CHIROPRAC ELEC T STIMJ UNATTENDE D CHIROPRAC 63366 RAJESH TALAVERA TIC 4 N FAMILY INEZ MANIPULAT CHIROPRAC SRAVAN TX T SPINAL 3-4 REGIONS THERAPEUT 27280 RAJESH TALAVERA IC PX 1/> 4 N FAMILY INEZ AREAS CHIROPRAC EACH 15 T MIN EXERCISES THERAPEUT 30787 RAJESH TALAVERA IC PX 1/> 4 N FAMILY INEZ AREAS CHIROPRAC EACH 15 T MIN EXERCISES CHIROPRAC 57693 RAJESH TALAVERA TIC 4 N FAMILY INEZ MANIPULAT CHIROPRAC SRAVAN TX T SPINAL 3-4 REGIONS APPL 47280 RAJESH TALAVERA MODALITY 4 N FAMILY INEZ 1/> AREAS CHIROPRAC TRACTION T MECHANICA L APPL 66308 RAJESH SADAF MODALITY 4 N FAMILY INEZ 1/> AREAS CHIROPRAC ELEC T STIMJ UNATTENDE D APPL 04757 RAJESH SADAF MODALITY 4 N FAMILY INEZ 1/> AREAS CHIROPRAC ELEC T STIMJ UNATTENDE D APPL 50611 RAJESH SADAF MODALITY 4 N FAMILY INEZ 1/> AREAS CHIROPRAC TRACTION T MECHANICA L CHIROPRAC 23680 RAJESH TALAVERA TIC 4 N FAMILY INEZ MANIPULAT CHIROPRAC SRAVAN TX T SPINAL 3-4 REGIONS THERAPEUT 65097 RAJESH TALAVERA IC PX 1/> 4 N FAMILY INEZ AREAS CHIROPRAC EACH 15 T MIN EXERCISES THERAPEUT 79944 RAJESH TALAVERA IC PX 1/> 4 N FAMILY INEZ AREAS CHIROPRAC EACH 15 T MIN EXERCISES CHIROPRAC 34864 RAJESH TALAVERA TIC 4 N FAMILY INEZ MANIPULAT CHIROPRAC SRAVAN TX T SPINAL 3-4 REGIONS GROUND A0425 [facility] MILEAGE 4 N SCOT T N SCOT T PER CO EMS CO EMS STATUTE MILE AMB A0427 [facility] SERVICE 4 N SCOT T N SCOT T ALS CO EMS CO EMS EMERGENCY TRANSPORT LEVEL 1 RADEX 99480 RAYChloe TALAVERA SPINE 4 N FAMILY INEZ LUMBOSACR CHIROPRAC AL 2/3 T VIEWS RADEX 98760 [facility] SADAF SPINE 4 N FAMILY INEZ CERVICAL CHIROPRAC 2 OR 3 T VIEWS WRIST L3908 [facility] HAND 4 TECHNOLOG TECHNOLOG ORTHOSIS IES INC IES INC EXT CONTROL COCK-UP PREFAB INJECTION J2270 [facility] MORPHINE 4 N N SULFATE [facility] UP TO 10 HOSPITA HOSPITA MG THERAPEUT 55459 [facility] IC 4 N N PROPHYLAC [facility] TIC/DX HOSPITA HOSPITA INJECTION SUBQ/IM SHOULDER L3670 J & L J & L ORTHOSIS 4 HOME HOME ACROMIO/C MEDICAL MEDICAL LAVICULAR EQUIPMENT EQUIPMENT PREFAB INJECTION J2250 [address] HCL PER 1 MG INJECTION J1100 [address] SONE SODIUM PHOSPHATE 1 MG INJECTION J2405 [address] [facility] PER 1 MG ANES 02717 ANA BALDWIN ANT NERVE 4 ANESTHESI MUSCLE A GROUP TDN PS FASCIA&BU RSA FOREARM WRIST INJECTION J3010 [facility] [address] [place] [address] 0.1 MG AMBULANCE A0429 [facility] SERVICE 4 N SCOT T N SCOT T BLS CO EMS CO EMS EMERGENCY TRANSPORT NEUROPLAS 74545 KESHIA SCHMITT TY 4 [facility] NRV CARPAL TUNNE GROUND [address] [facility] 4 N SCOT T N SCOT T PER CO EMS CO EMS STATUTE MILE LEVEL III 07372 [facility], SURG 4 [facility] ROSCOPIC EXAM EXCISION 12698 KESHIA SCHMITT GANGLION 4 [facility] DORSAL/VO LAR PRIMARY WRIST L3908 J & L J & L HAND 4 HOME HOME ORTHOSIS MEDICAL MEDICAL EXT EQUIPMENT EQUIPMENT CONTROL COCK-UP PREFAB LEVEL III 64813 [facility], SURG 4 [facility] ROSCOPIC EXAM COLLECTIO 37950 VAISHALIMARGARETTE NELSON N VENOUS 4 PADMINI BLOOD PEDIATRIC VENIPUNCT S & INTER URE BLOOD 58865 LAB MELVI LAB MELVI COUNT 4 ANDREY ANDREY COMPLETE [employer] AUTOMATED RADEX 63333 [facility] [place] SAKINA WRIST 4 RADIOLOGY RHO COMPLETE [address] [address] [place] [address] [facility] [place] DODGE HEAD/BRAI 4 RADIOLOGY RAY N W/O CONTRAST MATERIAL INCISION 10842 [facility] CELLAR[facility] & 4 [facility] - Y[facility] DRAINAGE EMERGENCY PAT ABSCESS PHYS SIMPLE/SI NGLE INCISION 87505 [facility] LOPEZ & 4 [facility] VINNY DRAINAGE EMERGENCY ABSCESS PHYS SIMPLE/SI NGLE RADEX 80180 [facility] [place] CYNTHIA MAT SPINE 4 RADIOLOGY LUMBOSACR AL 2/3 VIEWS Encounters Encounter Start End Date Code Location Performer Type Date EMERGENCY 69957 [facility] 7 7 EMERGENCY VISIT HIGH PHYSICIAN SEVERITY& S THREAT FUNJ EMERGENCY [address] [facility] 7 7 [facility] T VISIT MODERATE SEVERITY [facility] 7 7 [facility] EMERGENCY 50844 [facility] 7 7 [facility] PHYS HIGH/URGE NT SEVERITY OFFICE 28547 [facility] 7 7 N FAMILY T VISIT CHIROPRAC 10 T MINUTES [facility] 7 7 [facility]IONAL OUTPATI MEDICAL T EMERGENCY 72023 CHELITA SMITH 7 7 MEDICAL DEPARTMEN SERVICES T VISIT MODERATE SEVERITY OFFICE 05057 [facility] [facility] 7 7 ORTHOPEDI T VISIT C 15 ASSOCIAT MINUTES EMERGENCY 01036 JUNIPER STIC 7 7 [facility] MODERATE SEVERITY EMERGENCY 98947 [facility] [address] [facility] MEDICAL T VISIT LIMITED/M INOR PROB HOSPITAL [facility] - [address] [facility] [place] [id number] 7 N OUTPATIEN COMMUNTIY T HOSPITA EMERGENCY 86615 KRISTEN REGINE 7 7 [facility] EMERGENCY DEPARTMENT T VISIT EMERGENCY HIGH/URGE NT SEVERITY HOSPITAL [place] [address] 7 N OUTPATIEN COMMUNTIY T HOSPITA EMERGENCY 71484 CHELITA ARGUELLO 7 7 MEDICAL DEPARTMEN SERVCIES, T VISIT PSC MODERATE SEVERITY OFFICE 76684 [place] N[place]GE OUTPATIEN 7 7 ORTHOPEDI T NEW 45 C MINUTES ASSOCIAT EMERGENCY 03210 JUNIPER STIC 7 7 [facility] EMERGENCY DEPARTMENT T VISIT EMERGENCY MODERATE SEVERITY [facility] [address] [facility] OFFICE 95502 [facility] OUT[facility] 6 6 [place] T VISIT ORTHOPAED 10 IC MINUTES OFFICE 50767 [facility] [place] [facility] 6 6 [facility] 30 ORTHOPAED MINUTES IC EMERGENCY 36846 CHELITA REMY DEPT 6 6 MEDICAL VISIT SERVICES, HIGH PSC SEVERITY& THREAT FUNCJ EMERGENCY 95159 KRISTEN CORLEY MAR 6 6 [facility] DEPARTMEN T VISIT EMERGENCY MODERATE SEVERITY EMERGENCY [address] [place] [address] [facility] DEPARTMEN MEDICAL T VISIT LOW/MODER SEVERITY HOSPITAL [place] - 6 6 [facility] OUTPATIEN MEDICAL T EMERGENCY 24043 KRISTEN ROD 6 6 [facility] KATARZYNA DEPARTMEN T VISIT EMERGENCY MODERATE SEVERITY EMERGENCY 62853 KRISTEN ROD 5 5 [facility] KATARZYNA DEPARTMEN T VISIT EMERGENCY MODERATE SEVERITY EMERGENCY 91883 KRISTEN SALDAÑA 5 5 CIRO GREGORIO JR QUIRINO DEPARTMEN T VISIT EMERGENCY MODERATE SEVERITY [facility] N OUTPATI COMMUNTIY T HOSPITA EMERGENCY 88612 MARYSOL LOPEZ 5 5 [place] VINNY DEPARTMEN EMERGENCY T VISIT PHYS MODERATE SEVERITY OFFICE 73291 [facility] 5 PADMINI T VISIT PEDIATRIC 15 S & INTER MINUTES EMERGENCY 78833 [facility] NANDINI REDDYO 5 5 [place] DEPARTMEN EMERGENCY T VISIT SERV HIGH/URGE NT SEVERITY EMERGENCY 36247 MARYSOL DELANEY JR 5 5 [place] AMOR DEPARTMEN EMERGENCY T VISIT PHYS MODERATE SEVERITY EMERGENCY 29064 [facility] ELAINA URENA 5 5 [place] AMOR DEPARTMEN EMERGENCY T VISIT PHYS MODERATE SEVERITY EMERGENCY 46486 [facility] 5 5 [facility] DEPARTMEN INC T VISIT LIMITED/M INOR PROB HOSPITAL [facility] - 5 5 [facility] OUTPATIEN INC T EMERGENCY 98288 [facility] JESSICA 5 5 [place] VINNY DEPARTMEN EMERGENCY T VISIT PHYS MODERATE SEVERITY EMERGENCY 04817 [facility] MOOSE 5 5 [facility] - YORBA DEPARTMEN EMERGENCY PAT T VISIT PHYS MODERATE SEVERITY EMERGENCY 10713 [facility] E[facility] URENA 5 5 [place] AMOR DEPARTMEN EMERGENCY T VISIT PHYS MODERATE SEVERITY EMERGENCY 76235 [facility] LOPEZ 5 5 [place] VINNY DEPARTMEN EMERGENCY T VISIT PHYS HIGH/URGE NT SEVERITY EMERGENCY 00806 [facility] ELAINA JR 5 5 [place] AMOR DEPARTMEN EMERGENCY T VISIT PHYS HIGH/URGE NT SEVERITY EMERGENCY 91524 [facility] MICHAEL YAJAIRA 5 5 [place] DEPARTMEN EMERGENCY T VISIT PHYS MODERATE SEVERITY EMERGENCY 45333 [facility] LOPEZ 5 5 [place] VINNY DEPARTMEN EMERGENCY T VISIT PHYS MODERATE SEVERITY OFFICE 86126 ORTIZ DAMON OUTPATIEN 5 5 PADMINI T VISIT 5 PEDIATRIC MINUTES S & INTER EMERGENCY 62728 [facility] ELYSE CHR 5 5 [place] DEPARTMEN EMERGENCY T VISIT PHYS MODERATE SEVERITY OFFICE 09669 ORTIZ NELSON OUTPATIEN 5 5 PADMINI T VISIT PEDIATRIC 15 S & INTER MINUTES EMERGENCY 49255 [facility] CELLAROSI 5 5 [facility] - YORBA DEPARTMEN EMERGENCY PAT T VISIT PHYS MODERATE SEVERITY HOSPITAL [facility] - 4 4 N OUTPATIEN COMMUNTIY T HOSPITA EMERGENCY 07919 [facility] CELLAROSI 4 4 [facility] - YORBA DEPARTMEN EMERGENCY PAT T VISIT PHYS MODERATE SEVERITY OFFICE 91446 [facility]ALIMARGARETTE DAMON OUTPATIEN 4 4 PADMINI T VISIT PEDIATRIC 15 S & INTER MINUTES OFFICE 69862 RAJESH TALAVERA OUTPATIEN 4 4 N FAMILY INEZ T NEW 30 CHIROPRAC MINUTES T EMERGENCY 43190 [facility] 4 4 N DEPARTMEN COMMUNITY T VISIT HOSPITA MODERATE SEVERITY EMERGENCY 12227 [facility] CELLAROSI 4 4 [facility] - YORBA DEPARTMEN EMERGENCY PAT T VISIT PHYS HIGH/URGE NT SEVERITY HOSPITAL RAJESH - 4 4 N OUTPATIEN COMMUNITY T HOSPITA [facility]OSPITAL RAJ[facility] - 4 4 N OUTPATIEN COMMUNTIY T HOSPITA EMERGENCY 77417 RAJESH 4 4 N DEPARTMEN COMMUNTIY T VISIT HOSPITA MODERATE SEVERITY EMERGENCY 66888 [facility] AMEENA 4 4 [place] RYA DEPARTMEN EMERGENCY T VISIT PHYS LOW/MODER SEVERITY OFFICE 19495 ORTIZ NELSON OUTPATIEN 4 4 PADMINI T VISIT 5 PEDIATRIC MINUTES S & INTER HOSPITAL RAJESH - 4 4 N OUTPATIEN COMMUNITY T HOSPITA EMERGENCY 47159 [facility] JESSICA 4 4 [place] VINNY DEPARTMEN EMERGENCY T VISIT PHYS HIGH/URGE NT SEVERITY OFFICE 15196 ORTIZ HYDE OUTPATIEN 4 4 AND T NEW 20 PEDIATRIC MINUTES S & INTER EMERGENCY 68259 [facility] MICHAEL GATES 4 4 [place] DEPARTMEN EMERGENCY T VISIT PHYSI MODERATE SEVERITY EMERGENCY 58164 [facility] MOOSE 4 4 [facility] Y[facility]BA DEPARTMEN EMERGENCY PAT T VISIT PHYS MODERATE SEVERITY EMERGENCY 16081 [facility] JESSICA 4 4 [place] VINNY DEPARTMEN EMERGENCY T VISIT PHYS MODERATE SEVERITY EMERGENCY 61279 [facility] MICHAEL 4 4 [place] DEPARTMEN EMERGENCY T VISIT PHYSI HIGH/URGE NT SEVERITY
--- OUTSIDE RECORDS SUMMARY | 2017-08-15 23:47 | External Medical Summary Rpt | CCD ---
Author Author , SALLIE Organization SALLIE Address Unknown Phone [email or web address] Immunization Name Date Rout CVX Reac Dose Comm Prov Is Faci e tion ent ider Refu lity Give sed n DTaP 09-0 106 0.5 Hist JOSLYN No JOSLYN 8-20 mL oric KFOR KFOR (Dap 16 al THOS THOS tace Info l) rmat ion - Sour ce Unsp ecif ied DTaP 04-1 106 0.5 Hist JOSLYN No JOSLYN 4-20 mL oric KFOR KFOR (Dap 16 al THOS THOS tace Info l) rmat ion - Sour ce Unsp ecif ied
--- OUTSIDE RECORDS SUMMARY | 2017-08-15 23:47 | External Medical Summary Rpt | CCD ---
Author Author , SALLIE Organization SALLIE Address Unknown Phone [email or web address] Immunization Name Date Rout CVX Reac Dose [...]
--- OUTSIDE RECORDS SUMMARY | 2017-08-15 23:47 | External Medical Summary Rpt ---
Author Author SALLIE Paul, SALLIE [employer] Organization [employer] Address Unknown Phone Unavailable Results UA Observa Value Referen Units Interpr Notes Date tion ce etation Range UA Yellow Straw No No No May 17 Color informa informa informa 2017 tion in tion in tion in 6:19 PM source source source data data data UA Clear Clear No No No May 17 Appear informa informa informa 2016 tion in tion in tion in 6:19 PM source source source data data data UA Negativ Negativ No No No May 17 Glucose e e informa informa informa 2016 tion in tion in tion in 6:19 PM source source source data data data UA Negativ Negativ No No No May 17 Ketones e e informa informa informa 2016 tion in tion in tion in 6:19 PM source source source data data data UA Trace-l Negativ No Abnorma No May 17 Blood ysed e informa l informa 2016 tion in tion in 6:19 PM source source data data UA pH 6.0 5.0 - No No Referen May 17 8.0 informa informa ce 2016 tion in tion in range 6:19 PM source source valid data data for random specime ns only. UA Negativ Negativ No No No May 17 Protein e e informa informa informa 2016 tion in tion in tion in 6:19 PM source source source data data data UA 2.0 <=1 No Abnorma No May 17 Urobili E.U./dL E.U./dL informa l informa 2016 nogen tion in tion in 6:19 PM source source data data UA Negativ Negativ No No No May 17 Nitrite e e informa informa informa 2016 tion in tion in tion in 6:19 PM source source source data data data UA Leuk Negativ Negativ No No No May 17 Est e e informa informa informa 2017 tion in tion in tion in 6:19 PM source source source data data data UA Spec 1.010 1.002 - No No Referen May 17 Grav 1.030 informa informa ce 2017 tion in tion in range 6:19 PM source source valid data data for random specime ns only. UA RBC 0-2 0 - 3 /HPF No No May 17 informa informa 2017 tion in tion in 6:19 PM source source data data UA Rare No No No No May 17 Squam informa informa informa informa 2017 Epi tion in tion in tion in tion in 6:19 PM source source source source data data data data UA Trace No No No No May 17 Bacteri informa informa informa informa 2017 a tion in tion in tion in tion in 6:19 PM source source source source data data data data XR CHEST PA AND LATERAL Observa Value Referen Units Interpr Notes Date etation Range TWO-VIE No No No No May 17 W informa informa informa informa 2017 CHEST, tion in tion in tion in tion in 3:35 PM 05/17/20 source source source source 17 at data data data data 1524\.b r\\.br\ HISTORY : -EMESIS \.br\-r /o pneumon ia\.br\ \.br\FI NDINGS: \.br\\. br\Comp arison none.\. br\\.br \Heart size is normal. \.br\\. br\The lungs are clear.\ .br\\.b r\IMPRE SSION:\ .br\No acute disease .\.br\ Auto Diff Observa Value Referen Units Interpr Notes Date tion ce etation Range Neutrop 72.9 No % No No May 17 hils informa informa informa 2016 [#/volu tion in tion in tion in 4:07 PM me] in source source source Blood data data data by Automat ed count Lymphoc 10.4 No % No No May 17 ytes informa informa informa 2016 [#/volu tion in tion in tion in 4:07 PM me] in source source source Blood data data data by Automat ed count Monocyt 11.6 No % No No May 17 es informa informa informa 2016 [#/volu tion in tion in tion in 4:07 PM me] in source source source Blood data data data by Automat ed count Eos 4.3 No % No No May 17 Percent informa informa informa 2017 tion in tion in tion in 4:07 PM source source source data data data Baso 0.8 No % No No May 17 Percent informa informa informa 2017 tion in tion in tion in 4:07 PM source source source data data data Neut# 8.3 1.8 - x10(3)/ High No May 17 7.7 mcL informa 2017 tion in 4:07 PM source data Lymph# 1.2 0.6 - x10(3)/ No No May 17 4.8 mcL informa informa 2017 tion in tion in 4:07 PM source source data data Castro# 1.3 0.0 - x10(3)/ No No May 17 1.3 mcL informa informa 2017 tion in tion in 4:07 PM source source data data Eos# 0.5 0.0 - x10(3)/ No No May 17 0.5 mcL informa informa 2017 tion in tion in 4:07 PM source source data data Baso# 0.1 0.0 - x10(3)/ No No May 17 0.2 mcL informa informa 2017 tion in tion in 4:07 PM source source data data CBC Observa Value Referen Units Interpr Notes Date tion ce etation Range LEUKOCY 11.4 4.0 - x10(3)/ High No May 17 HUDSON 11.0 mcL informa 2017 tion in 4:07 PM source data Erythro 5.43 4.30 - x10(6)/ No No May 17 cytes 5.81 mcL informa informa 2016 [#/volu tion in tion in 4:07 PM me] in source source Blood data data by Automat ed count Hemoglo 16.2 13.5 - gm/dL No No May 17 bin 17.1 informa informa 2017 [Mass/v tion in tion in 4:07 PM olume] source source in data data Blood Hematoc 48.0 38.9 - % No No May 17 rit 51.6 informa informa 2017 [Volume tion in tion in 4:07 PM source source Fractio data data n] of Blood by Automat ed count Erythro 88.5 82.5 - fL No No May 17 cyte 99.8 informa informa 2017 mean tion in tion in 4:07 PM corpusc source source ular data data volume [Entiti c volume] by Automat ed count Erythro 29.9 27.0 - pg No No May 17 cyte 34.3 informa informa 2016 mean tion in tion in 4:07 PM corpusc source source ular data data hemoglo bin [Entiti c mass] by Automat ed count Erythro 33.8 32.1 - gm/dL No No May 17 cyte 35.3 informa informa 2016 mean tion in tion in 4:07 PM corpusc source source ular data data hemoglo bin concent ration [Mass/v olume] by Automat ed count Erythro 13.3 11.5 - % No No May 17 cyte 15.0 informa informa 2016 distrib tion in tion in 4:07 PM ution source source width data data [Ratio] by Automat ed count Platele 244 144 - x10(3)/ No No May 17 ts 423 mcL informa informa 2016 [#/volu tion in tion in 4:07 PM me] in source source Blood data data by Automat ed count MPV 9.5 6.8 - fL No No May 17 10.8 informa informa 2017 tion in tion in 4:07 PM source source data data StrepA DNA Observa Value Referen Units Interpr Notes Date tion ce etation Range Strep A Positiv No No Abnorma Test May 18 DNA e informa informa l methodo 2017 tion in tion in logy by 12:40 source source DNA PM data data probe. The perform ance charact eristic s of this test were validat ed by [facility] are Laborat ory. A negativ e result does not rule out the presenc e of Group A Strepto coccus DNA in concent rations below the level of detecti on of the assay. This laborat ory is authori zed under the Clinica l Laborat ory Improve ment Amendme nts (CLIA) as qualifi ed to perform high complex ity testing . Complia nce stateme nt is availab le in the Laborat ory. Strep Scn Observa Value Referen Units Interpr Notes Date tion ce etation Range Strep Negativ No No No No May 17 Screen e informa informa informa informa 2017 tion in tion in tion in tion in 3:22 PM source source source source data data data data Treponema pallidum IgG Ab [Presence] in Serum by Immunoassay Observa Value Referen Units Interpr Notes Date tion ce etation Range COLLECT DLONG,R No No No No May 30 OR N informa informa informa informa 2014 tion in tion in tion in tion in 11:30 source source source source AM data data data data ETHNICI BLACK No No No No May 30 TY NON informa informa informa informa 2014 HISPANI tion in tion in tion in tion in 11:30 C source source source source AM data data data data PURPOSE ROUTINE No No No No May 30 OF informa informa informa informa 2014 EXAM tion in tion in tion in tion in 11:30 source source source source AM data data data data SPECIME BLOOD No No No No May 30 N informa informa informa informa 2014 SOURCE tion in tion in tion in tion in 11:30 source source source source AM data data data data CHART 332-76- No No No No May 30 NUMBER [id number] informa informa informa informa 2014 tion in tion in tion in tion in 11:30 source source source source AM data data data data Trepone NON-AMARA No No No METHOD May [address] informa informa informa OF 2014 pallidu tion in tion in tion in ANALYSI 11:30 m IgG source source source S: AM Ab data data data EIANORM [Presen AL ce] in RANGE: Serum NON-AMARA by CTIVE\. Immunoa br\This ssay report contain s patient informa tion that must be protect ed in accorda nce with the Health Insuran ce Portabi lity and Account ability Act. Treponema pallidum IgG Ab [Presence] in Serum by Immunoassay Observa Value Referen Units Interpr Notes Date tion ce etation Range COLLECT DLONG,R No No No No May 30 OR N informa informa informa informa 2014 tion in tion in tion in tion in 11:30 source source source source AM data data data data ETHNICI BLACK No No No No May 30 TY NON informa informa informa informa 2014 HISPANI tion in tion in tion in tion in 11:30 C source source source source AM data data data data PURPOSE ROUTINE No No No No May 30 OF informa informa informa informa 2014 EXAM tion in tion in tion in tion in 11:30 source source source source AM data data data data SPECIME BLOOD No No No No May 30 N informa informa informa informa 2014 SOURCE tion in tion in tion in tion in 11:30 source source source source AM data data data data CHART [id number]- No No No No May 30 NUMBER [id number] informa informa informa informa 2014 tion in tion in tion in tion in 11:30 source source source source AM data data data data Trepone Pending No No No \.br\May 30 ma informa informa informa is 2014 pallidu tion in tion in tion in report 11:30 m IgG source source source contain AM Ab data data data s [Presen patient ce] in Serum informa by nadia Immunoa that ssay must be protect ed in accorda nce with the Health Insuran ce Portabi lity and Account ability Act. Reagin Ab [Presence] in Unspecified specimen by VDRL Observa Value Referen Units Interpr Notes Date tion ce etation Range COLLECT NA No No No No May 02 OR informa informa informa informa 2012 tion in tion in tion in tion in 8:10 PM source source source source data data data data ETHNICI WHITE No No No No May 02 TY informa informa informa informa 2012 tion in tion in tion in tion in 8:10 PM source source source source data data data data PURPOSE DIAGNOS No No No No May 02 OF TIC informa informa informa informa 2012 EXAM tion in tion in tion in tion in 8:10 PM source source source source data data data data SPECIME BLOOD No No No No May 02 N informa informa informa informa 2012 SOURCE tion in tion in tion in tion in 8:10 PM source source source source data data data data CHART NA No No No No May 02 NUMBER informa informa informa informa 2012 tion in tion in tion in tion in 8:10 PM source source source source data data data data Reagin NON-AMARA No No No METHOD May [address] informa informa informa OF 2011 [Presen tion in tion in tion in ANALYSI 8:10 PM ce] in source source source S: Unspeci data data data VDRLNOR fied MAL specime RANGE: n by NON VDRL REACTIV E\.br\T his report contain s patient informa tion that must be protect ed in accorda nce with the Health Insuran ce Portabi lity and Account ability Act. Reagin Ab [Presence] in Unspecified specimen by VDRL Observa Value Referen Units Interpr Notes Date tion ce etation Range COLLECT NA No No No No May 02 OR informa informa informa informa 2012 tion in tion in tion in tion in 8:10 PM source source source source data data data data ETHNICI WHITE No No No No May 02 TY informa informa informa informa 2012 tion in tion in tion in tion in 8:10 PM source source source source data data data data PURPOSE DIAGNOS No No No No May 02 OF TIC informa informa informa informa 2012 EXAM tion in tion in tion in tion in 8:10 PM source source source source data data data data SPECIME BLOOD No No No No May 02 N informa informa informa informa 2012 SOURCE tion in tion in tion in tion in 8:10 PM source source source source data data data data CHART NA No No No No May 02 NUMBER informa informa informa informa 2012 tion in tion in tion in tion in 8:10 PM source source source source data data data data Reagin Pending No No No \.br\May 02 Ab informa informa informa is 2012 [Presen tion in tion in tion in report 8:10 PM ce] in source source source contain Unspeci data data data s fied patient specime n by informa VDRL tion that must be protect ed in accorda nce with the Health Insuran ce Portabi lity and Account ability Act.
--- OUTSIDE RECORDS SUMMARY | 2017-08-15 23:47 | External Medical Summary Rpt ---
[...] in 4:07 PM source source data data [place]# 1.3 0.0 - x10(3)/ No No May [...] of this test were validat ed by [facility] are Laborat ory. A negativ e result [...]
== END 2017-08-15 23:45 | disposition home or self-care (01) ==
LOC: ER 23:11
DX: L03.811 Cellulitis of head [any part, except face] (principal); Z88.0 Allergy status to penicillin; Z88.6 Allergy status to analgesic agent; I10 Essential (primary) hypertension; J45.909 Unspecified asthma, uncomplicated; F17.210 Nicotine dependence, cigarettes, uncomplicated